=== PATIENT | female | born 1945 | race Caucasian/White ===

== ENCOUNTER 2017-11-24 19:28 | Emergency (ER) | payer MEDICARE, OTHER ==
[~2017-11-24] VITALS: Ht 157.5 cm; Wt 90.9 kg
[~2017-11-24 19:28] MED LIST: AMIT75TA48 PO; ASPI-529 PO; ATOR80TA PO; COU3T PO; COU4T PO; DICY10CA59 PO; DIPH1TAB PO; FAMO-127 PO; FURO-150 PO; HYDR-565 PO; INSU100V9 SQ; LISI-600 PO; LORA2TAB PO; METO25TA6 PO; NITR0.4T48 SL
[2017-11-24 19:35] VITALS: BP 162/96
[2017-11-24] MEDS ORDERED: orphenadrine citrate 60mg/2ml inj. IM ONE (22:15)
[2017-11-24] MEDS ORDERED: CYCL-1 PO (22:18)
== END 2017-11-24 22:34 | disposition home or self-care (01) ==
LOC: ER 19:29
DX: G89.29 Other chronic pain (principal); M54.5 Low back pain; I50.9 Heart failure, unspecified; I11.0 Hypertensive heart disease with heart failure; K21.9 Gastro-esophageal reflux disease without esophagitis; E11.9 Type 2 diabetes mellitus without complications; E78.00 Pure hypercholesterolemia, unspecified; Z90.710 Acquired absence of both cervix and uterus; Z98.890 Other specified postprocedural states; Z60.2 Problems related to living alone; Z88.2 Allergy status to sulfonamides; Z79.82 Long term (current) use of aspirin; Z79.01 Long term (current) use of anticoagulants; Z79.899 Other long term (current) drug therapy; Z79.4 Long term (current) use of insulin
CPT/HCPCS: 96372; 99283; J2360

== ENCOUNTER 2018-02-10 11:47 | Emergency (ER) | payer MEDICARE, OTHER ==
[~2018-02-10] VITALS: Ht 157.5 cm; Wt 95.5 kg
[~2018-02-10 11:47] MED LIST changes: +CYCL-1 PO
[2018-02-10 13:46] VITALS: BP 135/73
== END 2018-02-10 13:55 | disposition home or self-care (01) ==
LOC: ER 11:48
DX: G89.29 Other chronic pain (principal); M54.5 Low back pain; I11.0 Hypertensive heart disease with heart failure; I50.9 Heart failure, unspecified; E78.00 Pure hypercholesterolemia, unspecified; K21.9 Gastro-esophageal reflux disease without esophagitis; M19.90 Unspecified osteoarthritis, unspecified site; Z86.711 Personal history of pulmonary embolism; Z86.718 Personal history of other venous thrombosis and embolism; Z90.710 Acquired absence of both cervix and uterus; Z98.890 Other specified postprocedural states; Z60.2 Problems related to living alone; Z88.2 Allergy status to sulfonamides; Z88.8 Allergy status to other drugs, medicaments and biological substances; Z79.82 Long term (current) use of aspirin; Z79.4 Long term (current) use of insulin; Z79.01 Long term (current) use of anticoagulants; Z79.899 Other long term (current) drug therapy
CPT/HCPCS: 99281

== ENCOUNTER 2018-03-06 16:14 | Emergency (ER) | payer MEDICARE, OTHER ==
[~2018-03-06] VITALS: Ht 160 cm; Wt 100.0 kg
[2018-03-06 16:49] LABS: BASOPHILS # (AUTO) 0.1 X10'3 (0-0.2); BASOPHILS % (AUTO) 1.3 % (0-1); EOSINOPHILS # (AUTO) 0.2 X10'3 (0-0.9); EOSINOPHILS % (AUTO) 2.3 % (0-6); HEMATOCRIT 36.6 % (35.0-45.0); HEMOGLOBIN 12.6 g/dl (12.0-16.0); LYMPHOCYTES # (AUTO) 1.8 X10'3 (1.1-4.8); LYMPHOCYTES % (AUTO) 23.3 % (21-51); MEAN CORPUSCULAR HEMOGLOBIN 29.7 PG (27.0-31.0); MEAN CORPUSCULAR HGB CONC 34.4 % (33.0-36.5); MEAN CORPUSCULAR VOLUME 86.5 FL (78-98); MEAN PLATELET VOLUME 7.2 FL (7.4-10.4); MONOCYTES # (AUTO) 0.4 X10'3 (0-0.9); MONOCYTES % (AUTO) 5.5 % (2-12); NEUTROPHILS # (AUTO) 5.1 X10'3 (1.8-7.7); NEUTROPHILS % (AUTO) 67.6 % (42-75); PLATELET COUNT 305 X10'3 (140-440); RED BLOOD COUNT 4.23 X10'6 (4.20-5.60); RED CELL DISTRIBUTION WIDTH 15.7 % (11.5-14.5); WHITE BLOOD COUNT 7.6 X10'3 (4.5-11.0)
[2018-03-06 17:01] LABS: INR 2.1 INR; PARTIAL THROMBOPLASTIN TIME 30 SECONDS (22-32); PROTHROMBIN TIME 20.8 SECONDS (9.0-12.0)
[2018-03-06 17:06] LABS: ALANINE AMINOTRANSFERASE 21 U/L (12-78); ALBUMIN 3.6 G/DL (3.4-5.0); ALBUMIN/GLOBULIN RATIO 1.2 (1.1-1.5); ALKALINE PHOSPHATASE 125 IU/L (46-116); ANION GAP 7 (8-16); ASPARTATE AMINO TRANSFERASE 18 U/L (10-37); BILIRUBIN,TOTAL 0.2 MG/DL (0.1-1.0); BLOOD UREA NITROGEN 27 MG/DL (7-18); BUN/CREATININE RATIO 20.3 (6.6-38.0); CALCIUM 9.4 MG/DL (8.5-10.1); CHLORIDE 104 MMOL/L (99-107); CREATININE 1.33 MG/DL (0.40-0.90); GLUCOSE 107 MG/DL (70-104); SODIUM 140 MMOL/L (135-145); TOTAL CARBON DIOXIDE 28.8 MMOL/L (24-32); TOTAL PROTEIN 6.7 G/DL (6.4-8.2); eGFR 39 ML/MIN
[2018-03-06 19:02] LABS: D-DIMER 0.39 MG/L FEU (0-0.50)
[2018-03-06] MEDS ORDERED: ondansetron 4mg rapidly disintigrating tab PO ONE (20:00)
[2018-03-06] MEDS ORDERED: HYDROcodone/acetaminophen 5mg/325mg tablet PO ONE (20:00)
[2018-03-06 20:11] VITALS: BP 169/81
== END 2018-03-06 21:00 | disposition home or self-care (01) ==
LOC: ER 16:15
DX: R07.89 Other chest pain (principal); R00.2 Palpitations; I11.0 Hypertensive heart disease with heart failure; I50.9 Heart failure, unspecified; K21.9 Gastro-esophageal reflux disease without esophagitis; E11.9 Type 2 diabetes mellitus without complications; M19.90 Unspecified osteoarthritis, unspecified site; G89.29 Other chronic pain; Z86.718 Personal history of other venous thrombosis and embolism; Z86.711 Personal history of pulmonary embolism; Z90.710 Acquired absence of both cervix and uterus; Z98.890 Other specified postprocedural states; Z88.2 Allergy status to sulfonamides; Z79.01 Long term (current) use of anticoagulants; Z79.4 Long term (current) use of insulin; Z79.899 Other long term (current) drug therapy
CPT/HCPCS: 36415; 71045; 80053; 84484; 85025; 85379; 85610; 85730; 93005; 99285

== ENCOUNTER 2018-04-01 10:03 | Outpatient (CLI) | payer MEDICARE, OTHER ==
[~2018-04-01 10:03] MED LIST changes: +HYDR-4353 PO; -HYDR-565 PO
== END 2018-04-01 23:59 | disposition home or self-care (01) ==
LOC: 64 CT 10:03
PROVIDERS: ATTEND Family Medicine
DX: S00.83XA Contusion of other part of head, initial encounter (principal); R56.9 Unspecified convulsions; I11.0 Hypertensive heart disease with heart failure; E11.9 Type 2 diabetes mellitus without complications; I50.9 Heart failure, unspecified; Z96.653 Presence of artificial knee joint, bilateral; Z87.891 Personal history of nicotine dependence; X58.XXXA Exposure to other specified factors, initial encounter; Y93.89 Activity, other specified; Y92.89 Other specified places as the place of occurrence of the external cause; Y99.8 Other external cause status
CPT/HCPCS: 70450

== ENCOUNTER 2018-04-23 10:40 | Emergency (ER) | payer MEDICARE, OTHER ==
[~2018-04-23] VITALS: Ht 157.5 cm; Wt 88.0 kg
[2018-04-23 11:43] LABS: BASOPHILS # (AUTO) 0.1 X10'3 (0-0.2); BASOPHILS % (AUTO) 0.7 % (0-1); EOSINOPHILS # (AUTO) 0.2 X10'3 (0-0.9); HEMATOCRIT 40.9 % (35.0-45.0); HEMOGLOBIN 13.3 g/dl (12.0-16.0); LYMPHOCYTES # (AUTO) 1.8 X10'3 (1.1-4.8); LYMPHOCYTES % (AUTO) 18.4 % (21-51); MEAN CORPUSCULAR HEMOGLOBIN 29.3 PG (27.0-31.0); MEAN CORPUSCULAR HGB CONC 32.6 % (33.0-36.5); MEAN CORPUSCULAR VOLUME 89.9 FL (78-98); MEAN PLATELET VOLUME 7.7 FL (7.4-10.4); MONOCYTES # (AUTO) 0.5 X10'3 (0-0.9); NEUTROPHILS # (AUTO) 7.1 X10'3 (1.8-7.7); NEUTROPHILS % (AUTO) 73.9 % (42-75); PLATELET COUNT 315 X10'3 (140-440); RED BLOOD COUNT 4.55 X10'6 (4.20-5.60); RED CELL DISTRIBUTION WIDTH 15.4 % (11.5-14.5); WHITE BLOOD COUNT 9.5 X10'3 (4.5-11.0)
[2018-04-23 11:55] LABS: INR 2.3 INR; PARTIAL THROMBOPLASTIN TIME 31 SECONDS (22-32); PROTHROMBIN TIME 22.4 SECONDS (9.0-12.0)
[2018-04-23 12:06] LABS: ALANINE AMINOTRANSFERASE 23 U/L (12-78); ALBUMIN 3.7 G/DL (3.4-5.0); ALBUMIN/GLOBULIN RATIO 1.1 (1.1-1.5); ALKALINE PHOSPHATASE 127 IU/L (46-116); ANION GAP 8 (8-16); ASPARTATE AMINO TRANSFERASE 17 U/L (10-37); BILIRUBIN,TOTAL 0.5 MG/DL (0.1-1.0); BLOOD UREA NITROGEN 27 MG/DL (7-18); BUN/CREATININE RATIO 25.5 (6.6-38.0); CALCIUM 9.5 MG/DL (8.5-10.1); CHLORIDE 102 MMOL/L (99-107); CREATININE 1.06 MG/DL (0.40-0.90); GLUCOSE 123 MG/DL (70-104); POTASSIUM 3.6 MMOL/L (3.5-5.1); SODIUM 140 MMOL/L (135-145); TOTAL CARBON DIOXIDE 29.7 MMOL/L (24-32); TOTAL PROTEIN 7.2 G/DL (6.4-8.2); eGFR 51 ML/MIN
[2018-04-23 12:43] VITALS: BP 158/83
== END 2018-04-23 12:44 | disposition home or self-care (01) ==
LOC: ER 10:41
DX: R07.89 Other chest pain (principal); R60.0 Localized edema; I11.0 Hypertensive heart disease with heart failure; I50.9 Heart failure, unspecified; E78.00 Pure hypercholesterolemia, unspecified; K21.9 Gastro-esophageal reflux disease without esophagitis; E11.9 Type 2 diabetes mellitus without complications; M19.90 Unspecified osteoarthritis, unspecified site; G89.29 Other chronic pain; Z86.718 Personal history of other venous thrombosis and embolism; Z86.711 Personal history of pulmonary embolism; Z98.890 Other specified postprocedural states; Z90.710 Acquired absence of both cervix and uterus; Z88.2 Allergy status to sulfonamides; Z79.82 Long term (current) use of aspirin; Z79.01 Long term (current) use of anticoagulants; Z79.899 Other long term (current) drug therapy
CPT/HCPCS: 36415; 71045; 80053; 84484; 85025; 85610; 85730; 93005; 99285

== ENCOUNTER 2018-06-22 12:56 | Emergency (ER) | payer MEDICARE, OTHER ==
[~2018-06-22] VITALS: Ht 157.5 cm; Wt 99.0 kg
[2018-06-22 14:31] LABS: PARTIAL THROMBOPLASTIN TIME 43 SECONDS (22-32); PROTHROMBIN TIME 73.7 SECONDS (9.0-12.0)
[2018-06-22 14:33] LABS: INR 8.1 INR
--- NOTE | 2018-06-22 14:34 | NUR ---
critical value of INR 8.1, Dr Finch aware
[2018-06-22] MEDS ORDERED: phytonadione inj. 10 MG in normal saline 100ml IV soln 99 ML IV ONE (14:40)
[2018-06-22 15:04] LABS: BASOPHILS % (AUTO) 0.4 % (0-1); EOSINOPHILS # (AUTO) 0.2 X10'3 (0-0.9); EOSINOPHILS % (AUTO) 2.3 % (0-6); HEMATOCRIT 37.8 % (35.0-45.0); HEMOGLOBIN 12.3 g/dl (12.0-16.0); LYMPHOCYTES # (AUTO) 1.2 X10'3 (1.1-4.8); LYMPHOCYTES % (AUTO) 14.8 % (21-51); MEAN CORPUSCULAR HEMOGLOBIN 29.7 PG (27.0-31.0); MEAN CORPUSCULAR HGB CONC 32.6 % (33.0-36.5); MEAN PLATELET VOLUME 7.8 FL (7.4-10.4); MONOCYTES # (AUTO) 0.5 X10'3 (0-0.9); MONOCYTES % (AUTO) 6.4 % (2-12); NEUTROPHILS # (AUTO) 5.9 X10'3 (1.8-7.7); NEUTROPHILS % (AUTO) 76.1 % (42-75); PLATELET COUNT 298 X10'3 (140-440); RED BLOOD COUNT 4.15 X10'6 (4.20-5.60); RED CELL DISTRIBUTION WIDTH 13.8 % (11.5-14.5); WHITE BLOOD COUNT 7.8 X10'3 (4.5-11.0)
[2018-06-22 15:08] LABS: ALANINE AMINOTRANSFERASE 37 U/L (12-78); ALBUMIN 3.6 G/DL (3.4-5.0); ALKALINE PHOSPHATASE 152 IU/L (46-116); ANION GAP 11 (8-16); ASPARTATE AMINO TRANSFERASE 32 U/L (10-37); BILIRUBIN,TOTAL 0.2 MG/DL (0.1-1.0); BLOOD UREA NITROGEN 43 MG/DL (7-18); BUN/CREATININE RATIO 30.1 (6.6-38.0); CALCIUM 8.7 MG/DL (8.5-10.1); CHLORIDE 103 MMOL/L (99-107); CREATININE 1.43 MG/DL (0.40-0.90); GLUCOSE 160 MG/DL (70-104); POTASSIUM 4.3 MMOL/L (3.5-5.1); SODIUM 139 MMOL/L (135-145); TOTAL CARBON DIOXIDE 25.3 MMOL/L (24-32); TOTAL PROTEIN 7.2 G/DL (6.4-8.2); eGFR 36 ML/MIN
[2018-06-22 15:35] VITALS: BP 161/71
== END 2018-06-22 15:38 | disposition home or self-care (01) ==
LOC: ER 12:56
DX: D68.8 Other specified coagulation defects (principal); J06.9 Acute upper respiratory infection, unspecified; E78.00 Pure hypercholesterolemia, unspecified; K21.9 Gastro-esophageal reflux disease without esophagitis; M19.90 Unspecified osteoarthritis, unspecified site; G89.29 Other chronic pain; I11.0 Hypertensive heart disease with heart failure; I50.9 Heart failure, unspecified; Z90.710 Acquired absence of both cervix and uterus; Z98.890 Other specified postprocedural states; Z86.718 Personal history of other venous thrombosis and embolism; Z86.711 Personal history of pulmonary embolism; Z88.2 Allergy status to sulfonamides; Z79.01 Long term (current) use of anticoagulants; Z88.8 Allergy status to other drugs, medicaments and biological substances; Z79.82 Long term (current) use of aspirin; Z79.899 Other long term (current) drug therapy; Z79.4 Long term (current) use of insulin
CPT/HCPCS: 36415; 71045; 80053; 83735; 84484; 85025; 85610; 85730; 93005; 99284; J3430; J7030

== ENCOUNTER 2018-06-25 09:40 | Inpatient (IN) | payer MEDICARE, OTHER ==
[~2018-06-25] VITALS: Ht 157.5 cm; Wt 95.5 kg
[2018-06-25 10:29] LABS: BASOPHILS # (AUTO) 0.1 X10'3 (0-0.2); EOSINOPHILS # (AUTO) 0.2 X10'3 (0-0.9); EOSINOPHILS % (AUTO) 3.3 % (0-6); HEMATOCRIT 35.2 % (35.0-45.0); HEMOGLOBIN 11.8 g/dl (12.0-16.0); LYMPHOCYTES # (AUTO) 1.4 X10'3 (1.1-4.8); LYMPHOCYTES % (AUTO) 22.1 % (21-51); MEAN CORPUSCULAR HEMOGLOBIN 30.1 PG (27.0-31.0); MEAN CORPUSCULAR HGB CONC 33.5 % (33.0-36.5); MEAN PLATELET VOLUME 7.7 FL (7.4-10.4); MONOCYTES # (AUTO) 0.4 X10'3 (0-0.9); MONOCYTES % (AUTO) 5.9 % (2-12); NEUTROPHILS # (AUTO) 4.2 X10'3 (1.8-7.7); NEUTROPHILS % (AUTO) 67.7 % (42-75); PLATELET COUNT 290 X10'3 (140-440); RED BLOOD COUNT 3.91 X10'6 (4.20-5.60); RED CELL DISTRIBUTION WIDTH 13.6 % (11.5-14.5); WHITE BLOOD COUNT 6.3 X10'3 (4.5-11.0)
[2018-06-25 10:40] LABS: ALANINE AMINOTRANSFERASE 39 U/L (12-78); ALBUMIN 3.5 G/DL (3.4-5.0); ALKALINE PHOSPHATASE 155 IU/L (46-116); ANION GAP 13 (8-16); ASPARTATE AMINO TRANSFERASE 31 U/L (10-37); BILIRUBIN,TOTAL 0.3 MG/DL (0.1-1.0); BLOOD UREA NITROGEN 27 MG/DL (7-18); BUN/CREATININE RATIO 25.7 (6.6-38.0); CHLORIDE 102 MMOL/L (99-107); CREATININE 1.05 MG/DL (0.40-0.90); GLUCOSE 188 MG/DL (70-104); POTASSIUM 4.1 MMOL/L (3.5-5.1); SODIUM 138 MMOL/L (135-145); TOTAL CARBON DIOXIDE 23.2 MMOL/L (24-32); TOTAL PROTEIN 6.9 G/DL (6.4-8.2); eGFR 52 ML/MIN
[2018-06-25 10:43] LABS: INR 2.2 INR; PARTIAL THROMBOPLASTIN TIME 30 SECONDS (22-32); PROTHROMBIN TIME 21.5 SECONDS (9.0-12.0)
[2018-06-25] MEDS ORDERED: normal saline 1000ML IV soln IVB ONE (11:20)
[2018-06-25] MEDS ORDERED: INSU100I29 (12:39)
[2018-06-25] MEDS ORDERED: DILT240C47 PO (12:39)
[2018-06-25] MEDS ORDERED: BACL10TA2 PO (12:39)
[2018-06-25] MEDS ORDERED: magnesium Cl slow-release 64mg tablet PO PRN (13:35)
[2018-06-25] MEDS ORDERED: ondansetron/PF 4mg/2ml inj IV PRN (13:35)
[2018-06-25] MEDS ORDERED: magnesium 4gm in 100ml NS 100 ML IV PRN (13:35)
[2018-06-25] MEDS ORDERED: potassium Cl 40MEQ/NS 500ml 500 ML IV PRN ×2 (13:35)
[2018-06-25] MEDS ORDERED: potassium Cl 20 mEq SR tablet PO PRN ×2 (13:35)
--- NOTE | 2018-06-25 15:10 | NUR ---
Pt arrived on unit via gurney with ER nurse Barak. Patient assisted to bed. Orientation to room provided. Call light in place bed in low position.
[2018-06-25 15:40] VITALS: BP 168/69
[2018-06-25] MEDS ORDERED: dextrose 50%-water 50ml dispensing syringe IV PRN ×2 (17:05)
[2018-06-25] MEDS ORDERED: insulin Lispro (HumaLOG) vial - multi-dose SQ SCH (17:05)
[2018-06-25] MEDS ORDERED: dextrose ORAL solution 15 GM/59 ML bottle PO PRN ×2 (17:05)
[2018-06-25] MEDS ORDERED: furosemide 20MG tablet PO PRN (17:05)
[2018-06-25] MEDS ORDERED: diphenoxylate/atropine tablet (Lomotil) PO PRN (17:05)
[2018-06-25] MEDS ORDERED: glucagon, human recombinant 1mg kit SUBCUT PRN (17:05)
[2018-06-25] MEDS ORDERED: MESSAGE TO PHARMACY PO ONE (17:05)
[2018-06-25 18:37] LABS: HEMOGLOBIN A1C 7.4 % (4.5-6.2)
--- NOTE | 2018-06-25 18:40 | NUR ---
Problems reprioritized. Patient report given, questions answered & plan of care reviewed with Vivian CLEMENTS.
--- NOTE | 2018-06-25 18:42 | NUR ---
Patient in room LEXEI 356. I have received report from Cee CLEMENTS and had the opportunity to ask questions and assume patient care. Pt sitting up in bed eating dinner and visiting with her neighbor. Pt has no signs of distress. Will continue to monitor.
[2018-06-25] MEDS: HYDROcodone/acetaminophen 10/325mg tab PO SCH (19:50)
[2018-06-25 20:00] VITALS: BP_SYST 150; BP_SYST 151; BP_SYST 171; BP_DIAS 50; BP_DIAS 53; BP_DIAS 68
[2018-06-25] MEDS ORDERED: LORazepam 1 MG tablet PO SCH (21:00)
[2018-06-25] MEDS ORDERED: insulin glargine (Lantus) pen - multi-dose SQ SCH (21:00)
[2018-06-25] MEDS ORDERED: non-formulary drug (Lorazepam 1 TAB) PO SCH (21:00)
[2018-06-25] MEDS: dicyclomine 10 MG capsule PO SCH (22:05)
[2018-06-25] MEDS: baclofen 10mg tablet PO PRN (22:05)
[2018-06-26] VITALS: BP 148/41
[2018-06-26] MEDS: HYDROcodone/acetaminophen 10/325mg tab PO SCH ×4 (00:16→13:08)
[2018-06-26 06:05] LABS: ALBUMIN 2.9 G/DL (3.4-5.0); ANION GAP 9 (8-16); BLOOD UREA NITROGEN 19 MG/DL (7-18); CALCIUM 8.7 MG/DL (8.5-10.1); CHLORIDE 107 MMOL/L (99-107); CREATININE 0.95 MG/DL (0.40-0.90); GLUCOSE 127 MG/DL (70-104); MAGNESIUM 1.7 MG/DL (1.5-2.4); SODIUM 142 MMOL/L (135-145); TOTAL CARBON DIOXIDE 26.1 MMOL/L (24-32); eGFR 58 ML/MIN
[2018-06-26 06:12] LABS: BASOPHILS % (AUTO) 0.3 % (0-1); EOSINOPHILS # (AUTO) 0.4 X10'3 (0-0.9); EOSINOPHILS % (AUTO) 7.3 % (0-6); HEMATOCRIT 32.6 % (35.0-45.0); HEMOGLOBIN 10.7 g/dl (12.0-16.0); LYMPHOCYTES % (AUTO) 36.4 % (21-51); MEAN CORPUSCULAR HEMOGLOBIN 29.8 PG (27.0-31.0); MEAN CORPUSCULAR HGB CONC 32.7 % (33.0-36.5); MEAN PLATELET VOLUME 7.7 FL (7.4-10.4); MONOCYTES # (AUTO) 0.4 X10'3 (0-0.9); MONOCYTES % (AUTO) 6.9 % (2-12); NEUTROPHILS # (AUTO) 2.6 X10'3 (1.8-7.7); NEUTROPHILS % (AUTO) 49.1 % (42-75); PLATELET COUNT 256 X10'3 (140-440); RED BLOOD COUNT 3.59 X10'6 (4.20-5.60); RED CELL DISTRIBUTION WIDTH 13.4 % (11.5-14.5); WHITE BLOOD COUNT 5.4 X10'3 (4.5-11.0)
--- NOTE | 2018-06-26 06:39 | NUR ---
Patient in room LEXIE 356. I have received report from TYREE Park and had the opportunity to ask questions and assume patient care.
--- NOTE | 2018-06-26 06:41 | NUR ---
Problems reprioritized. Patient report given, questions answered & plan of care reviewed with Nava RN. Pt sitting up in bed talking to her roomate with no signs of distress.
[2018-06-26 06:45] LABS: INR 1.9 INR; PROTHROMBIN TIME 18.7 SECONDS (9.0-12.0)
[2018-06-26 07:25] VITALS: BP 165/63
[2018-06-26] MEDS: dicyclomine 10 MG capsule PO SCH ×2 (07:48→12:46)
[2018-06-26 08:00] VITALS: BP_SYST 167; BP_SYST 170; BP_SYST 174; BP_DIAS 63; BP_DIAS 65; BP_DIAS 72
[2018-06-26] MEDS ORDERED: DILTIAZEM HCL 240 MG PO SCH (08:00)
[2018-06-26] MEDS ORDERED: diltiazem CD 120mg capsule (once-daily) PO SCH (08:00)
[2018-06-26] MEDS ORDERED: K and/or MAG REPLACEMENT MC SCH (08:00)
[2018-06-26] MEDS ORDERED: warfarin 3mg tablet PO SCH (08:00)
[2018-06-26] MEDS: baclofen 10mg tablet PO PRN (09:07)
[2018-06-26 11:00] VITALS: BP 174/65
--- NOTE | 2018-06-26 15:50 | NUR ---
DM consult: Pt with A1c 7.4. Pt seen at bedside given written and verbal DM education with referral to outpatient DM class and RD contact information. Will remain available. Addendum: 06/26/18 at [address] Amended: Links added.
[2018-06-26] MEDS ORDERED: HYDROcodone/acetaminophen 10/325mg tab PO SCH (16:00)
[2018-06-26] MEDS ORDERED: DONE5TAB7 PO (17:13)
[2018-06-26] MEDS ORDERED: LISI-604 PO (17:13)
[2018-06-26] MEDS ORDERED: lisinopril 5mg tablet PO SCH (17:15)
[2018-06-26] MEDS ORDERED: donepezil 5mg tablet PO SCH (17:15)
[2018-06-26 17:19] LABS: CLARITY,URINE CLEAR (Clear); COLOR,URINE YELLOW (Yellow); GLUCOSE, URINE NEGATIVE (Neg); KETONES,URINE 15 mg/dl (Neg); LEUKOCYTE ESTERASE ,URINE NEGATIVE (Neg); NITRITES, URINE NEGATIVE (Neg); OCCULT BLOOD,URINE SMALL (Neg); PH,URINE 5.5 (4.8-8.0); PROTEIN,URINE NEGATIVE (Neg); UROBILINOGEN,URINE 0.2 E.U/dL (0.2-1.0)
[2018-06-26 17:27] LABS: UA COLLECTION TYPE NON-SPECIFIED
[2018-06-26 17:28] LABS: BACTERIA,URINE NONE SEEN /HPF (Neg); RBC,URINE NONE SEEN /HPF (0-2); SQUAMOUS EPITHELIAL CELL,UR FEW /LPF (FEW); WBC,URINE NONE SEEN /HPF (0-4)
[2018-06-26 17:29] LABS: MUCUS STRANDS FEW /LPF (Neg)
--- NOTE | 2018-06-26 18:15 | NUR ---
Problems reprioritized. Patient report given, questions answered & plan of care reviewed with Violeta Vargas RN.
--- NOTE | 2018-06-26 19:38 | NUR ---
Pt discharged to personal vehicle. A&O, up ad fili, fully dressed self for discharge. Daytime RN was told MD had called daughter for pickup expecting the MD had relayed info to pt daughter. Pt called daughter to find out whereabouts and daughter stated she was never called. Patient decided to drive self home and is fully capable of doing so. IV had been removed by daytime RN. Patient had all belongings. Stated her primary MD was on vacation for 4 weeks, but would follow up with PA. Discharged with HH via interim.
[2018-06-26] MEDS ORDERED: lactobacillus rhamnosus 10,000 MMU CELLS/CAPSULE PO SCH (20:00)
== END 2018-06-26 19:25 | disposition home health service (06) | DRG 57 ==
LOC: ER 09:40 → ED HOLD 13:33 → SUR 3N 15:33
PROVIDERS: ADMIT Internal Medicine; ATTEND Internal Medicine
DX: G30.9 Alzheimer's disease, unspecified (principal); D68.69 Other thrombophilia; D68.9 Coagulation defect, unspecified; E78.00 Pure hypercholesterolemia, unspecified; E78.5 Hyperlipidemia, unspecified; F02.80 Dementia in other diseases classified elsewhere, unspecified severity, without behavioral disturbance, psychotic disturbance, mood disturbance, and anxiety; G20 Parkinson's disease; F32.9 Major depressive disorder, single episode, unspecified; F41.9 Anxiety disorder, unspecified; M19.90 Unspecified osteoarthritis, unspecified site; N28.9 Disorder of kidney and ureter, unspecified; E10.9 Type 1 diabetes mellitus without complications; M54.9 Dorsalgia, unspecified; G89.4 Chronic pain syndrome; I11.0 Hypertensive heart disease with heart failure; I50.9 Heart failure, unspecified; K21.9 Gastro-esophageal reflux disease without esophagitis; Z60.2 Problems related to living alone; Z90.710 Acquired absence of both cervix and uterus; Z95.0 Presence of cardiac pacemaker; Z88.2 Allergy status to sulfonamides; Z88.8 Allergy status to other drugs, medicaments and biological substances; Z79.899 Other long term (current) drug therapy; Z79.4 Long term (current) use of insulin; Z79.01 Long term (current) use of anticoagulants; Z86.711 Personal history of pulmonary embolism; Z86.718 Personal history of other venous thrombosis and embolism; Z82.3 Family history of stroke; Z83.3 Family history of diabetes mellitus
CPT/HCPCS: 36415; 70450; 70551; 71045; 80048; 80053; 81001; 82948; 83036; 83735; 84484; 85025; 85610; 85730; 87070; 93005; 96360; 97116; 97161; 99285; G0378; J1815

== ENCOUNTER 2018-10-01 16:44 | Inpatient (IN) | payer MEDICARE, OTHER ==
[~2018-10-01] VITALS: Ht 157.5 cm; Wt 98.6 kg
[~2018-10-01 16:44] MED LIST changes: -AMIT75TA48 PO; -ASPI-529 PO; -ATOR80TA PO; -CYCL-1 PO; +DILT240C47 PO; +DONE5TAB7 PO; -FAMO-127 PO; -FURO-150 PO; +INSU100I29; -INSU100V9 SQ; -LISI-600 PO; +LISI-604 PO; -METO25TA6 PO; -NITR0.4T48 SL
[2018-10-01 17:58] LABS: BASOPHILS % (AUTO) 0.6 % (0-1); EOSINOPHILS # (AUTO) 0.2 X10'3 (0-0.9); EOSINOPHILS % (AUTO) 3.4 % (0-6); HEMATOCRIT 36.5 % (35.0-45.0); HEMOGLOBIN 11.8 g/dl (12.0-16.0); LYMPHOCYTES # (AUTO) 1.6 X10'3 (1.1-4.8); LYMPHOCYTES % (AUTO) 23.2 % (21-51); MEAN CORPUSCULAR HEMOGLOBIN 28.5 PG (27.0-31.0); MEAN CORPUSCULAR HGB CONC 32.4 g/dL (33.0-36.5); MEAN CORPUSCULAR VOLUME 87.9 FL (78-98); MEAN PLATELET VOLUME 7.6 FL (7.4-10.4); MONOCYTES # (AUTO) 0.5 X10'3 (0-0.9); MONOCYTES % (AUTO) 7.1 % (2-12); NEUTROPHILS # (AUTO) 4.6 X10'3 (1.8-7.7); NEUTROPHILS % (AUTO) 65.7 % (42-75); PLATELET COUNT 244 X10'3 (140-440); RED BLOOD COUNT 4.15 X10'6 (4.20-5.60); RED CELL DISTRIBUTION WIDTH 14.8 % (11.5-14.5); WHITE BLOOD COUNT 7.1 X10'3 (4.5-11.0)
[2018-10-01 18:10] LABS: ALANINE AMINOTRANSFERASE 23 U/L (12-78); ALBUMIN 3.2 G/DL (3.4-5.0); ALKALINE PHOSPHATASE 126 IU/L (46-116); ANION GAP 7 (8-16); ASPARTATE AMINO TRANSFERASE 17 U/L (10-37); BILIRUBIN,TOTAL 0.1 MG/DL (0.1-1.0); BLOOD UREA NITROGEN 37 MG/DL (7-18); BUN/CREATININE RATIO 29.4 (6.6-38.0); CALCIUM 9.1 MG/DL (8.5-10.1); CHLORIDE 106 MMOL/L (99-107); CREATININE 1.26 MG/DL (0.40-0.90); GLUCOSE 237 MG/DL (70-104); POTASSIUM 4.7 MMOL/L (3.5-5.1); SODIUM 139 MMOL/L (135-145); TOTAL CARBON DIOXIDE 25.9 MMOL/L (24-32); TOTAL PROTEIN 6.3 G/DL (6.4-8.2); eGFR 42 ML/MIN
[2018-10-01 18:26] LABS: PARTIAL THROMBOPLASTIN TIME 44 SECONDS (22-32)
[2018-10-01 18:28] LABS: INR 5.5 INR
[2018-10-01] MEDS ORDERED: FURO-150 PO (20:01)
[2018-10-01] MEDS ORDERED: LISI10TA4 PO (20:01)
[2018-10-01] MEDS ORDERED: DONE5TAB7 PO (20:01)
[2018-10-01] MEDS ORDERED: ACET-2319 PO (20:01)
[2018-10-01] MEDS ORDERED: MAGN400C PO (20:01)
[2018-10-01] MEDS ORDERED: AMIT-106 PO (20:01)
[2018-10-01] MEDS ORDERED: INSU100I29 SQ (20:01)
[2018-10-01] MEDS ORDERED: [UNRECOGNIZED DRUG - OTHER] PO (20:01)
[2018-10-01] MEDS ORDERED: FAMO20TA8 PO (20:01)
[2018-10-01] MEDS ORDERED: normal saline 1000ml 1,000 ML IV SCH (20:08)
[2018-10-01] MEDS ORDERED: potassium Cl 40MEQ/NS 500ml 500 ML IV PRN ×2 (20:10)
[2018-10-01] MEDS ORDERED: aminophylline 250mg/10ml inj. IV PRN (20:10)
[2018-10-01] MEDS ORDERED: acetaminophen 325mg tablet PO PRN (20:10)
[2018-10-01] MEDS ORDERED: mag hydrox/Alum hydrox/simeth 30ml oral suspension PO PRN (20:10)
[2018-10-01] MEDS ORDERED: magnesium 4gm in 100ml NS 100 ML IV PRN (20:10)
[2018-10-01] MEDS ORDERED: nitroGLYCERIN 0.4mg SUBLingual tab SL PRN (20:10)
[2018-10-01] MEDS ORDERED: metoprolol tartrate 1mg/ml inj IV PRN (20:10)
[2018-10-01] MEDS ORDERED: glucagon, human recombinant 1mg kit SUBCUT PRN (20:10)
[2018-10-01] MEDS ORDERED: dextrose ORAL solution 15 GM/59 ML bottle PO PRN ×2 (20:10)
[2018-10-01] MEDS ORDERED: docusate sod 100mg capsule PO PRN (20:10)
[2018-10-01] MEDS ORDERED: potassium Cl 20 mEq SR tablet PO PRN ×2 (20:10)
[2018-10-01] MEDS ORDERED: regadenoson 0.4mg/5ml syringe IV ONE (20:10)
[2018-10-01] MEDS ORDERED: MESSAGE TO PHARMACY PO ONE (20:10)
[2018-10-01] MEDS ORDERED: insulin Lispro (HumaLOG) vial - multi-dose SQ SCH (20:10)
[2018-10-01] MEDS ORDERED: magnesium 2GM in 50ml NS 50 ML IV PRN (20:10)
[2018-10-01] MEDS ORDERED: morphine 4 MG/ML inj SYRINge IV PRN ×2 (20:10)
[2018-10-01] MEDS ORDERED: dextrose 50%-water 50ml dispensing syringe IV PRN ×2 (20:10)
[2018-10-01 20:46] LABS: HEMOGLOBIN A1C 7.3 % (4.5-6.2)
[2018-10-01] MEDS: insulin glargine (Lantus) pen - multi-dose SQ SCH (21:00)
[2018-10-01] MEDS ORDERED: HYDROcodone/acetaminophen 5mg/325mg tablet PO PRN (21:50)
--- NOTE | 2018-10-01 22:16 | NUR ---
pt c\o chronic back pain. pt given PO [place]. will re-eval shortly to see if effective
[2018-10-01] MEDS: dicyclomine 10 MG capsule PO SCH (22:21)
[2018-10-01] MEDS: donepezil 5mg tablet PO SCH (22:33)
[2018-10-01] MEDS ORDERED: AZIT-63 PO (23:22)
[2018-10-02] VITALS (8 sets, daily range): BP systolic 121–160; BP diastolic 51–63
--- NOTE | 2018-10-02 00:41 | NUR ---
Called Dr. oMon re: additional pain meds for patient's back pain. PAGER ID: [phone] MESSAGE: Re: Mari Major, new admit for chest pain in PCU 3012-C. Still c/o back pain. Has received 5mg of [place], and 2mg of Morphine, both approx. 2 hrs ago. She takes 20mg of Oxy QHS at home, and 10mg Q4 during the day. Pls call Elsa at [phone] returned call while typing current note, gave new orders.
[2018-10-02] MEDS ORDERED: HYDROcodone/acetaminophen 10/325mg tab PO ONE (00:50)
[2018-10-02] MEDS: HYDROcodone/acetaminophen 10/325mg tab PO PRN ×3 (01:44→23:52)
[2018-10-02 05:47] LABS: BASOPHILS % (AUTO) 0.4 % (0-1); EOSINOPHILS # (AUTO) 0.3 X10'3 (0-0.9); EOSINOPHILS % (AUTO) 4.9 % (0-6); HEMATOCRIT 33.9 % (35.0-45.0); HEMOGLOBIN 11.1 g/dl (12.0-16.0); LYMPHOCYTES # (AUTO) 1.9 X10'3 (1.1-4.8); LYMPHOCYTES % (AUTO) 34.3 % (21-51); MEAN CORPUSCULAR HEMOGLOBIN 29.1 PG (27.0-31.0); MEAN CORPUSCULAR HGB CONC 32.8 g/dL (33.0-36.5); MEAN CORPUSCULAR VOLUME 88.8 FL (78-98); MEAN PLATELET VOLUME 7.8 FL (7.4-10.4); MONOCYTES # (AUTO) 0.5 X10'3 (0-0.9); MONOCYTES % (AUTO) 8.7 % (2-12); NEUTROPHILS # (AUTO) 2.9 X10'3 (1.8-7.7); NEUTROPHILS % (AUTO) 51.7 % (42-75); PLATELET COUNT 224 X10'3 (140-440); RED BLOOD COUNT 3.82 X10'6 (4.20-5.60); WHITE BLOOD COUNT 5.6 X10'3 (4.5-11.0)
--- NOTE | 2018-10-02 06:00 | NUR ---
Patient in room PCU 3012. I have received report from TYREE Hunter and had the opportunity to ask questions and assume patient care.
[2018-10-02 06:01] LABS: ALANINE AMINOTRANSFERASE 22 U/L (12-78); ALBUMIN 2.9 G/DL (3.4-5.0); ALBUMIN/GLOBULIN RATIO 1.1 (1.1-1.5); ALKALINE PHOSPHATASE 109 IU/L (46-116); ANION GAP 5 (8-16); ASPARTATE AMINO TRANSFERASE 15 U/L (10-37); BILIRUBIN,TOTAL 0.3 MG/DL (0.1-1.0); BLOOD UREA NITROGEN 26 MG/DL (7-18); BUN/CREATININE RATIO 28.6 (6.6-38.0); CALCIUM 8.8 MG/DL (8.5-10.1); CHLORIDE 108 MMOL/L (99-107); CHOL/HDL RATIO 3.7 (0.00-4.99); CHOLESTEROL 194 MG/DL (0-200); CREATININE 0.91 MG/DL (0.40-0.90); GLUCOSE 117 MG/DL (70-104); HDL CHOLESTEROL 53 MG/DL (35-60); LDL CHOLESTEROL 127 MG/DL (50-100); MAGNESIUM 1.7 MG/DL (1.5-2.4); SODIUM 141 MMOL/L (135-145); TOTAL CARBON DIOXIDE 28.3 MMOL/L (24-32); TOTAL PROTEIN 5.6 G/DL (6.4-8.2); TRIGLYCERIDES 150 MG/DL (20-135); eGFR 61 ML/MIN
[2018-10-02 07:26] LABS: PROTHROMBIN TIME 40.2 SECONDS (9.0-12.0)
[2018-10-02 07:28] LABS: INR 4.3 INR
--- NOTE | 2018-10-02 07:41 | NUR ---
PAGER ID: [phone] MESSAGE: [id number] Jacob Major Critical INR 4.3, down from 5.5. TYREE Mendes [id number]
[2018-10-02] MEDS: K and/or MAG REPLACEMENT MC SCH (08:00)
[2018-10-02] MEDS: dicyclomine 10 MG capsule PO SCH ×3 (08:53→20:48)
[2018-10-02] MEDS: famotidine 20mg tablet PO SCH (08:53)
[2018-10-02] MEDS: diltiazem CD 120mg capsule (once-daily) PO SCH (08:54)
[2018-10-02] MEDS: lisinopril 10 MG tablet PO SCH (08:54)
[2018-10-02] MEDS ORDERED: nitroGLYCERIN 0.4mg/hour patch TD ONE (09:05)
--- NOTE | 2018-10-02 09:40 | NUR ---
Pt c/o chest pain 5/10 central chest pressure radiating to left arm. Notified MD of change in patient's CP, going to order a STAT EKG, per MD EKG is not necessary. MD okay with administered IV morphine for chest pain. No other orders received at this time.
[2018-10-02] MEDS ORDERED: metoprolol tartrate 1mg/ml inj IV PRN (10:00)
[2018-10-02] MEDS ORDERED: nitroGLYCERIN 0.4mg SUBLingual tab SL PRN (10:00)
[2018-10-02] MEDS ORDERED: regadenoson 0.4mg/5ml syringe IV ONE (10:00)
[2018-10-02] MEDS ORDERED: aminophylline 250mg/10ml inj. IV PRN (10:00)
[2018-10-02] MEDS: aspirin 81mg tablet.DR PO SCH (10:25)
[2018-10-02] MEDS: atorvastatin 20mg tablet PO SCH (11:33)
--- NOTE | 2018-10-02 12:08 | NUR ---
PAGER ID: [phone] MESSAGE: [id number] Jacob Major Please call Sheila in [facility] re. Radha. ext. [phone]. Thank you.
--- NOTE | 2018-10-02 13:25 | NUR ---
Pt c/o headache 8/ and dizziness. Wants nitro patch removed. BP 161/65, HR 78. Pt removed patch. Addendum: 10/02/18 at 1747 by Nanette Anton RN @ [phone] Pt states headache is 5/10, BP is 125/50, HR 69. Will notify
--- NOTE | 2018-10-02 13:39 | NUR ---
DM/malnutrition consult, A1c 7.3; patient seen at bedside and written DM education handout with verbal review and referral to Friday outpatient DM education class. Patient reports that last year she lost and gained back 100 lbs. She states that recently there is no weight loss and reports a good appetite. Does not want milk to drink, d/w dietary, will add yogurt to lunch per pt request. Addendum: 10/02/18 at [address] Amended: Links added.
--- NOTE | 2018-10-02 16:25 | NUR ---
PAGER ID: [phone] MESSAGE: [id number] Jacob Major Pt removed nitro patch with c/o headache. pain resolved with removal. No chest pain. TYREE Mendes [id number]
--- NOTE | 2018-10-02 18:10 | NUR ---
Patient in room PCU 3012. I have received report from Cinthya CLEMENTS and had the opportunity to ask questions and assume patient care.
[2018-10-02] MEDS: morphine 2 MG/ML inj. syringe IV PRN (19:47)
[2018-10-02] MEDS: donepezil 5mg tablet PO SCH (20:48)
[2018-10-02] MEDS: magnesium oxide 400mg tablet PO SCH (20:53)
[2018-10-02] MEDS: insulin glargine (Lantus) pen - multi-dose SQ SCH (21:00)
[2018-10-03] VITALS (14 sets, daily range): BP systolic 105–152; BP diastolic 48–82
[2018-10-03 05:24] LABS: PROTHROMBIN TIME 21.3 SECONDS (9.0-12.0)
[2018-10-03 05:25] LABS: INR 2.2 INR
[2018-10-03 05:34] LABS: BASOPHILS % (AUTO) 0.5 % (0-1); EOSINOPHILS # (AUTO) 0.3 X10'3 (0-0.9); HEMATOCRIT 35.9 % (35.0-45.0); HEMOGLOBIN 11.7 g/dl (12.0-16.0); LYMPHOCYTES # (AUTO) 1.8 X10'3 (1.1-4.8); LYMPHOCYTES % (AUTO) 35.1 % (21-51); MEAN CORPUSCULAR HEMOGLOBIN 28.8 PG (27.0-31.0); MEAN CORPUSCULAR HGB CONC 32.7 g/dL (33.0-36.5); MEAN PLATELET VOLUME 7.7 FL (7.4-10.4); MONOCYTES # (AUTO) 0.5 X10'3 (0-0.9); MONOCYTES % (AUTO) 9.3 % (2-12); NEUTROPHILS # (AUTO) 2.6 X10'3 (1.8-7.7); NEUTROPHILS % (AUTO) 50.1 % (42-75); PLATELET COUNT 234 X10'3 (140-440); RED BLOOD COUNT 4.08 X10'6 (4.20-5.60); RED CELL DISTRIBUTION WIDTH 14.8 % (11.5-14.5); WHITE BLOOD COUNT 5.2 X10'3 (4.5-11.0)
[2018-10-03 05:37] LABS: ALANINE AMINOTRANSFERASE 23 U/L (12-78); ALBUMIN/GLOBULIN RATIO 1.1 (1.1-1.5); ALKALINE PHOSPHATASE 116 IU/L (46-116); ANION GAP 6 (8-16); ASPARTATE AMINO TRANSFERASE 17 U/L (10-37); BILIRUBIN,TOTAL 0.4 MG/DL (0.1-1.0); BLOOD UREA NITROGEN 19 MG/DL (7-18); BUN/CREATININE RATIO 20.4 (6.6-38.0); CALCIUM 9.3 MG/DL (8.5-10.1); CHLORIDE 107 MMOL/L (99-107); CREATININE 0.93 MG/DL (0.40-0.90); GLUCOSE 132 MG/DL (70-104); MAGNESIUM 1.7 MG/DL (1.5-2.4); POTASSIUM 4.1 MMOL/L (3.5-5.1); SODIUM 141 MMOL/L (135-145); TOTAL PROTEIN 5.8 G/DL (6.4-8.2); eGFR 59 ML/MIN
--- NOTE | 2018-10-03 06:14 | NUR ---
Student Medication Administration: For this medication-pass time frame, all medication were reviewed, dispensed, administered and documented per hospital policy by Tayla KELLY. Student documentation: I have reviewed and agree with all interventions, assessments performed and documented by Tayla KELLY.
--- NOTE | 2018-10-03 06:20 | NUR ---
Patient in room PCU 3012. I have received report from TYREE Kwon and had the opportunity to ask questions and assume patient care.
--- NOTE | 2018-10-03 06:23 | NUR ---
Problems reprioritized. Patient report given, questions answered & plan of care reviewed with Cinthya CLEMENTS.
[2018-10-03] MEDS: ondansetron/PF 4mg/2ml inj IV PRN (07:36)
[2018-10-03] MEDS: dicyclomine 10 MG capsule PO SCH ×4 (07:37→20:15)
[2018-10-03] MEDS: K and/or MAG REPLACEMENT MC SCH (07:37)
[2018-10-03] MEDS: atorvastatin 20mg tablet PO SCH (07:37)
[2018-10-03] MEDS: aspirin 81mg tablet.DR PO SCH (07:37)
[2018-10-03] MEDS: famotidine 20mg tablet PO SCH (07:38)
[2018-10-03] MEDS: magnesium oxide 400mg tablet PO SCH ×2 (07:38→20:14)
[2018-10-03] MEDS: lisinopril 10 MG tablet PO SCH (07:38)
[2018-10-03] MEDS: diltiazem CD 120mg capsule (once-daily) PO SCH (07:39)
[2018-10-03] MEDS ORDERED: aminophylline inj. 10 ML IV ONE (09:31)
[2018-10-03] MEDS ORDERED: regadenoson 0.4mg/5ml syringe IV ONE (09:31)
[2018-10-03] MEDS ORDERED: isosorbide mononitrate 30mg tab.SR.24H PO ONE (10:05)
--- NOTE | 2018-10-03 12:34 | NUR ---
Lexiscan administered at 1215.
[2018-10-03] MEDS: morphine 2 MG/ML inj. syringe IV PRN ×2 (13:10→21:57)
--- NOTE | 2018-10-03 14:53 | NUR ---
PAGER ID: [phone] MESSAGE: [id number] Jacob Major, okay to feed patient? TYREE Mendes [id number] Addendum: 10/03/18 at 1455 by Nanette Anton RN Received okay to feed patient
--- NOTE | 2018-10-03 18:53 | NUR ---
Consult f/u: Pt has no wt loss hx from prior admits though does admit to low appetite past week r/t not feeling well. No significant edema/wounds, weakness, or visible signs of muscle/fat wasting. Pt seen by GIRISH for written DM ed; verbal not given since pt headache s/p stress test and A1C 7.3 w/ no questions/concerns from pt. RD contact information provided. Addendum: 10/03/18 at [address] Amended: Links added.
--- NOTE | 2018-10-03 18:58 | NUR ---
Patient in room PCU 3012. I have received report from Cinthya CLEMENTS and had the opportunity to ask questions and assume patient care.
[2018-10-03] MEDS: amitriptyline 25mg tablet PO SCH (20:13)
[2018-10-03] MEDS: donepezil 5mg tablet PO SCH (20:15)
[2018-10-03] MEDS: HYDROcodone/acetaminophen 10/325mg tab PO PRN (20:18)
[2018-10-03] MEDS: insulin glargine (Lantus) pen - multi-dose SQ SCH (21:00)
[2018-10-04] VITALS (10 sets, daily range): BP systolic 128–164; BP diastolic 43–80
[2018-10-04 05:43] LABS: BASOPHILS % (AUTO) 0.4 % (0-1); EOSINOPHILS # (AUTO) 0.2 X10'3 (0-0.9); EOSINOPHILS % (AUTO) 3.3 % (0-6); HEMATOCRIT 36.1 % (35.0-45.0); HEMOGLOBIN 11.5 g/dl (12.0-16.0); LYMPHOCYTES # (AUTO) 1.4 X10'3 (1.1-4.8); LYMPHOCYTES % (AUTO) 25.5 % (21-51); MEAN CORPUSCULAR HEMOGLOBIN 28.6 PG (27.0-31.0); MEAN CORPUSCULAR VOLUME 89.4 FL (78-98); MEAN PLATELET VOLUME 7.9 FL (7.4-10.4); MONOCYTES # (AUTO) 0.5 X10'3 (0-0.9); NEUTROPHILS # (AUTO) 3.4 X10'3 (1.8-7.7); NEUTROPHILS % (AUTO) 61.8 % (42-75); PLATELET COUNT 226 X10'3 (140-440); RED BLOOD COUNT 4.03 X10'6 (4.20-5.60); RED CELL DISTRIBUTION WIDTH 14.5 % (11.5-14.5); WHITE BLOOD COUNT 5.5 X10'3 (4.5-11.0)
[2018-10-04 05:48] LABS: INR 1.5 INR; PROTHROMBIN TIME 14.7 SECONDS (9.0-12.0)
[2018-10-04 06:03] LABS: ALANINE AMINOTRANSFERASE 23 U/L (12-78); ALBUMIN 3.1 G/DL (3.4-5.0); ALBUMIN/GLOBULIN RATIO 1.1 (1.1-1.5); ALKALINE PHOSPHATASE 112 IU/L (46-116); ANION GAP 9 (8-16); ASPARTATE AMINO TRANSFERASE 17 U/L (10-37); BILIRUBIN,TOTAL 0.4 MG/DL (0.1-1.0); BLOOD UREA NITROGEN 23 MG/DL (7-18); BUN/CREATININE RATIO 24.5 (6.6-38.0); CHLORIDE 106 MMOL/L (99-107); CREATININE 0.94 MG/DL (0.40-0.90); GLUCOSE 136 MG/DL (70-104); MAGNESIUM 1.8 MG/DL (1.5-2.4); POTASSIUM 4.1 MMOL/L (3.5-5.1); SODIUM 143 MMOL/L (135-145); TOTAL CARBON DIOXIDE 27.6 MMOL/L (24-32); TOTAL PROTEIN 5.9 G/DL (6.4-8.2); eGFR 58 ML/MIN
--- NOTE | 2018-10-04 06:24 | NUR ---
Problems reprioritized. Patient report given, questions answered & plan of care reviewed with Roma CLEMENTS.
--- NOTE | 2018-10-04 06:25 | NUR ---
Patient in room PCU 3012. I have received report from TYREE Gomez and had the opportunity to ask questions and assume patient care.
[2018-10-04] MEDS: magnesium oxide 400mg tablet PO SCH ×2 (07:50→20:22)
[2018-10-04] MEDS: aspirin 81mg tablet.DR PO SCH (07:50)
[2018-10-04] MEDS: dicyclomine 10 MG capsule PO SCH ×3 (07:52→20:22)
[2018-10-04] MEDS: famotidine 20mg tablet PO SCH (07:53)
[2018-10-04] MEDS: atorvastatin 20mg tablet PO SCH (07:53)
[2018-10-04] MEDS: lisinopril 10 MG tablet PO SCH (07:53)
[2018-10-04] MEDS: diltiazem CD 120mg capsule (once-daily) PO SCH (07:54)
[2018-10-04] MEDS: K and/or MAG REPLACEMENT MC SCH (08:00)
[2018-10-04] MEDS: morphine 2 MG/ML inj. syringe IV PRN (09:19)
--- NOTE | 2018-10-04 13:07 | NUR ---
Dr. Taylor at bedside, orders received to make pt NPO after midnight in preparation for heart cath on 10/05/18.
[2018-10-04] MEDS: HYDROcodone/acetaminophen 10/325mg tab PO PRN ×2 (17:20→21:31)
--- NOTE | 2018-10-04 18:05 | NUR ---
Problems reprioritized. Patient report given, questions answered & plan of care reviewed with TYREE Nance.
[2018-10-04] MEDS: amitriptyline 25mg tablet PO SCH (20:22)
[2018-10-04] MEDS: donepezil 5mg tablet PO SCH (20:22)
[2018-10-04] MEDS: insulin glargine (Lantus) pen - multi-dose SQ SCH (20:25)
[2018-10-04] MEDS: LORazepam 1 MG tablet PO PRN (20:28)
[2018-10-05] VITALS (15 sets, daily range): BP systolic 100–142; BP diastolic 42–90
[2018-10-05 05:22] LABS: BASOPHILS % (AUTO) 0.7 % (0-1); EOSINOPHILS # (AUTO) 0.3 X10'3 (0-0.9); EOSINOPHILS % (AUTO) 4.8 % (0-6); HEMATOCRIT 35.6 % (35.0-45.0); HEMOGLOBIN 11.8 g/dl (12.0-16.0); LYMPHOCYTES # (AUTO) 2.1 X10'3 (1.1-4.8); LYMPHOCYTES % (AUTO) 37.7 % (21-51); MEAN CORPUSCULAR VOLUME 87.8 FL (78-98); MEAN PLATELET VOLUME 7.7 FL (7.4-10.4); MONOCYTES # (AUTO) 0.6 X10'3 (0-0.9); MONOCYTES % (AUTO) 10.1 % (2-12); NEUTROPHILS # (AUTO) 2.6 X10'3 (1.8-7.7); NEUTROPHILS % (AUTO) 46.7 % (42-75); PLATELET COUNT 245 X10'3 (140-440); RED BLOOD COUNT 4.06 X10'6 (4.20-5.60); WHITE BLOOD COUNT 5.6 X10'3 (4.5-11.0)
[2018-10-05 05:38] LABS: INR 1.3 INR; PROTHROMBIN TIME 12.6 SECONDS (9.0-12.0)
[2018-10-05 05:39] LABS: ALANINE AMINOTRANSFERASE 19 U/L (12-78); ALBUMIN 3.1 G/DL (3.4-5.0); ALBUMIN/GLOBULIN RATIO 1.1 (1.1-1.5); ALKALINE PHOSPHATASE 113 IU/L (46-116); ANION GAP 7 (8-16); ASPARTATE AMINO TRANSFERASE 16 U/L (10-37); BILIRUBIN,TOTAL 0.4 MG/DL (0.1-1.0); BLOOD UREA NITROGEN 21 MG/DL (7-18); BUN/CREATININE RATIO 22.1 (6.6-38.0); CALCIUM 9.4 MG/DL (8.5-10.1); CHLORIDE 106 MMOL/L (99-107); CREATININE 0.95 MG/DL (0.40-0.90); GLUCOSE 124 MG/DL (70-104); SODIUM 141 MMOL/L (135-145); TOTAL CARBON DIOXIDE 27.8 MMOL/L (24-32); eGFR 58 ML/MIN
--- NOTE | 2018-10-05 06:18 | NUR ---
Problems reprioritized. Patient report given, questions answered & plan of care reviewed with Roma CLEMENTS.
--- NOTE | 2018-10-05 06:30 | NUR ---
Patient in room PCU 3012. I have received report from TYREE Nance and had the opportunity to ask questions and assume patient care.
[2018-10-05] MEDS: dicyclomine 10 MG capsule PO SCH ×3 (07:58→21:03)
[2018-10-05] MEDS: famotidine 20mg tablet PO SCH (07:59)
[2018-10-05] MEDS: atorvastatin 20mg tablet PO SCH (07:59)
[2018-10-05] MEDS: aspirin 81mg tablet.DR PO SCH (07:59)
[2018-10-05] MEDS: magnesium oxide 400mg tablet PO SCH ×2 (07:59→21:03)
[2018-10-05] MEDS: K and/or MAG REPLACEMENT MC SCH (08:00)
[2018-10-05] MEDS: diltiazem CD 120mg capsule (once-daily) PO SCH (08:00)
[2018-10-05] MEDS: lisinopril 10 MG tablet PO SCH (08:01)
[2018-10-05] MEDS: ondansetron/PF 4mg/2ml inj IV PRN (09:52)
[2018-10-05] MEDS: morphine 2 MG/ML inj. syringe IV PRN ×2 (09:53→21:25)
--- NOTE | 2018-10-05 12:23 | NUR ---
Paged PICC nurse to attempt new PIV prior to heart cath.
[2018-10-05] MEDS: HYDROcodone/acetaminophen 10/325mg tab PO PRN ×2 (15:00→19:12)
[2018-10-05] MEDS ORDERED: iohexol 350MG/ML 100ml bottle IV ONE (16:31)
[2018-10-05] MEDS ORDERED: fentaNYL/PF 50MCG/1 ML 2ML syringe ONE (16:31)
[2018-10-05] MEDS ORDERED: LIDOcaine 1% (10mg/ml)w/preservative injection 20ml MDV ONE (16:31)
[2018-10-05] MEDS ORDERED: midazolam 2 mg/2 ml injection ONE (16:31)
--- NOTE | 2018-10-05 16:44 | NUR ---
Pt transported to veterinary laboratory diagnostician via wheelchair.
--- NOTE | 2018-10-05 17:30 | NUR ---
Pt returned to room from label rewinder via gurney. Pt transferred in to bed without difficulty. R groin access site assessed, no hematoma or signs of bleeding present. Pt educated on importance of remaining flat and motionless for 6 hours. Dorsalis pedis pulse in R foot present with doppler, dorsalis pedis pulse in L foot palpable. Post op vital signs initiated. Written orders reviewed and faxed to pharmacy. Will continue to closely monitor.
[2018-10-05] MEDS ORDERED: proCHLORperazine 10 MG/2 ml inj IV PRN (18:10)
[2018-10-05] MEDS ORDERED: OXAZEpam 15mg capsule PO PRN (18:10)
--- NOTE | 2018-10-05 18:27 | NUR ---
Patient in room PCU 3012C. I have received report from Roma CLEMENTS and had the opportunity to ask questions and assume patient care. Patient post laborer rags, site assessed, dressing CDI, no hematoma, or ecchymosis. Emphasized to patient, need to keep right leg straight, and to stay flat until 2330, to reduce risk of bleed at incision site. Will continue to monitor closely
--- NOTE | 2018-10-05 18:27 | NUR ---
Problems reprioritized. Patient report given, questions answered & plan of care reviewed with TYREE Nance.
--- NOTE | 2018-10-05 20:24 | NUR ---
Patient in room PCU 3012C. I have received report from TYREE KEARNEY and had the opportunity to ask questions and assume patient care.
[2018-10-05] MEDS: insulin glargine (Lantus) pen - multi-dose SQ SCH (21:00)
[2018-10-05] MEDS: donepezil 5mg tablet PO SCH (21:03)
[2018-10-05] MEDS: amitriptyline 25mg tablet PO SCH (21:03)
[2018-10-05] MEDS: LORazepam 1 MG tablet PO PRN (21:23)
[2018-10-06 01:20] VITALS: BP 139/53
[2018-10-06 03:00] VITALS: BP 139/53
[2018-10-06 05:07] LABS: BASOPHILS % (AUTO) 0.6 % (0-1); EOSINOPHILS # (AUTO) 0.3 X10'3 (0-0.9); EOSINOPHILS % (AUTO) 4.5 % (0-6); HEMATOCRIT 35.6 % (35.0-45.0); HEMOGLOBIN 11.7 g/dl (12.0-16.0); LYMPHOCYTES # (AUTO) 1.8 X10'3 (1.1-4.8); LYMPHOCYTES % (AUTO) 31.7 % (21-51); MEAN CORPUSCULAR HEMOGLOBIN 29.4 PG (27.0-31.0); MEAN CORPUSCULAR HGB CONC 32.9 g/dL (33.0-36.5); MEAN CORPUSCULAR VOLUME 89.5 FL (78-98); MEAN PLATELET VOLUME 7.8 FL (7.4-10.4); MONOCYTES # (AUTO) 0.5 X10'3 (0-0.9); MONOCYTES % (AUTO) 9.5 % (2-12); NEUTROPHILS % (AUTO) 53.7 % (42-75); PLATELET COUNT 239 X10'3 (140-440); RED BLOOD COUNT 3.98 X10'6 (4.20-5.60); WHITE BLOOD COUNT 5.6 X10'3 (4.5-11.0)
[2018-10-06 05:33] LABS: ALANINE AMINOTRANSFERASE 21 U/L (12-78); ALBUMIN 3.1 G/DL (3.4-5.0); ALBUMIN/GLOBULIN RATIO 1.1 (1.1-1.5); ALKALINE PHOSPHATASE 110 IU/L (46-116); ANION GAP 5 (8-16); ASPARTATE AMINO TRANSFERASE 16 U/L (10-37); BILIRUBIN,TOTAL 0.3 MG/DL (0.1-1.0); BLOOD UREA NITROGEN 24 MG/DL (7-18); BUN/CREATININE RATIO 23.3 (6.6-38.0); CHLORIDE 106 MMOL/L (99-107); CREATININE 1.03 MG/DL (0.40-0.90); GLUCOSE 129 MG/DL (70-104); MAGNESIUM 1.9 MG/DL (1.5-2.4); POTASSIUM 4.1 MMOL/L (3.5-5.1); SODIUM 141 MMOL/L (135-145); TOTAL PROTEIN 5.9 G/DL (6.4-8.2); eGFR 53 ML/MIN
--- NOTE | 2018-10-06 06:20 | NUR ---
Problems reprioritized. Patient report given, questions answered & plan of care reviewed with ART, RN.
--- NOTE | 2018-10-06 06:26 | NUR ---
[place] documentation: I have reviewed and agree with all interventions, assessments performed and documented by Tanner CLEMENTS. [place] Medication Administration: For this medication-pass time frame, all medication were reviewed, dispensed, administered and documented per hospital policy by Tanner CLEMENTS.
[2018-10-06] MEDS: dicyclomine 10 MG capsule PO SCH (08:22)
[2018-10-06] MEDS: aspirin 81mg tablet.DR PO SCH (08:22)
[2018-10-06] MEDS: magnesium oxide 400mg tablet PO SCH (08:23)
[2018-10-06] MEDS: atorvastatin 20mg tablet PO SCH (08:23)
[2018-10-06] MEDS: diltiazem CD 120mg capsule (once-daily) PO SCH (08:23)
[2018-10-06] MEDS: famotidine 20mg tablet PO SCH (08:24)
[2018-10-06] MEDS: lisinopril 10 MG tablet PO SCH (08:24)
[2018-10-06 09:09] LABS: INR 1.1 INR; PROTHROMBIN TIME 11.1 SECONDS (9.0-12.0)
[2018-10-06 10:12] VITALS: BP 137/49
--- NOTE | 2018-10-06 11:42 | NUR ---
Pt given DC instructions. Pt IV removed, tip intact. Pt given Diabetes skills information. pt escorted to lobby for cab ride home.
== END 2018-10-06 11:41 | disposition home or self-care (01) | DRG 287 ==
LOC: ER 16:44 → ED HOLD 23:17 → PCU 3S 10-02 00:09
PROVIDERS: ADMIT Family Medicine; ATTEND Internal Medicine
PROC: 4A02XM4 Measurement of Cardiac Total Activity, External Approach (ICD-10-PCS; principal; 2018-10-03)
PROC: 3E033HZ Introduction of Radioactive Substance into Peripheral Vein, Percutaneous Approach (ICD-10-PCS; 2018-10-03)
PROC: 4A023N7 Measurement of Cardiac Sampling and Pressure, Left Heart, Percutaneous Approach (ICD-10-PCS; 2018-10-05)
PROC: B2111ZZ Fluoroscopy of Multiple Coronary Arteries using Low Osmolar Contrast (ICD-10-PCS; 2018-10-05)
PROC: B2151ZZ Fluoroscopy of Left Heart using Low Osmolar Contrast (ICD-10-PCS; 2018-10-05)
DX: R07.89 Other chest pain (principal); Z68.41 Body mass index [BMI] 40.0-44.9, adult; D68.59 Other primary thrombophilia; I13.0 Hypertensive heart and chronic kidney disease with heart failure and stage 1 through stage 4 chronic kidney disease, or unspecified chronic kidney disease; E11.22 Type 2 diabetes mellitus with diabetic chronic kidney disease; E66.01 Morbid (severe) obesity due to excess calories; E78.00 Pure hypercholesterolemia, unspecified; E78.5 Hyperlipidemia, unspecified; F03.90 Unspecified dementia, unspecified severity, without behavioral disturbance, psychotic disturbance, mood disturbance, and anxiety; G20 Parkinson's disease; G89.4 Chronic pain syndrome; I50.9 Heart failure, unspecified; K21.9 Gastro-esophageal reflux disease without esophagitis; M19.90 Unspecified osteoarthritis, unspecified site; Z96.642 Presence of left artificial hip joint; Z96.653 Presence of artificial knee joint, bilateral; M79.7 Fibromyalgia; F32.9 Major depressive disorder, single episode, unspecified; G54.0 Brachial plexus disorders; N18.3 Chronic kidney disease, stage 3 (moderate); I25.10 Atherosclerotic heart disease of native coronary artery without angina pectoris; F41.9 Anxiety disorder, unspecified; Z98.1 Arthrodesis status; Z90.710 Acquired absence of both cervix and uterus; Z79.01 Long term (current) use of anticoagulants; Z79.4 Long term (current) use of insulin; Z88.2 Allergy status to sulfonamides; Z86.711 Personal history of pulmonary embolism; Z86.718 Personal history of other venous thrombosis and embolism; Z86.73 Personal history of transient ischemic attack (TIA), and cerebral infarction without residual deficits; Z87.891 Personal history of nicotine dependence; Z82.3 Family history of stroke; Z83.3 Family history of diabetes mellitus; Z80.42 Family history of malignant neoplasm of prostate; Z80.3 Family history of malignant neoplasm of breast
CPT/HCPCS: 36415; 71045; 78452; 80053; 80061; 82948; 83036; 83735; 83880; 84484; 85025; 85610; 85730; 87070; 93005; 93017; 93306; 93458; 96361; 96374; 97116; 97162; 99152; 99285; A4620; A6257; A9500; C1769; G0378; J0280; J1644; J1815; J2001; J2250; J2270; J2405; J3010; J7030; Q9967

== ENCOUNTER 2019-07-02 10:16 | Day surgery (SDC) | payer MEDICARE, OTHER ==
[2019-07-02] VITALS (11 sets, daily range): BP systolic 123–168; BP diastolic 55–91
[~2019-07-02] VITALS: Ht 157.5 cm; Wt 100.1 kg
[~2019-07-02 10:16] MED LIST changes: +ACET-2319 PO; +AMIT25TA9 PO; -DIPH1TAB PO; +FAMO20TA8 PO; +FURO-150 PO; -INSU100I29; +INSU100I29 SQ; -LISI-604 PO; +LISI10TA4 PO; +MAGN400C PO; +[UNRECOGNIZED DRUG - OTHER] PO
[2019-07-02] MEDS ORDERED: normal saline 1,000 ML IV SCH (10:40)
[2019-07-02] MEDS ORDERED: diphenhydrAMINE 25mg capsule PO PRN (10:40)
[2019-07-02 11:28] LABS: BASOPHILS % (AUTO) 0.4 % (0-1); EOSINOPHILS # (AUTO) 0.5 X10'3 (0-0.9); EOSINOPHILS % (AUTO) 8.8 % (0-6); HEMATOCRIT 38.4 % (35.0-45.0); HEMOGLOBIN 12.8 g/dl (12.0-16.0); LYMPHOCYTES # (AUTO) 1.7 X10'3 (1.1-4.8); LYMPHOCYTES % (AUTO) 26.6 % (21-51); MEAN CORPUSCULAR HEMOGLOBIN 29.6 PG (27.0-31.0); MEAN CORPUSCULAR HGB CONC 33.4 g/dL (33.0-36.5); MEAN CORPUSCULAR VOLUME 88.6 FL (78-98); MONOCYTES # (AUTO) 0.4 X10'3 (0-0.9); MONOCYTES % (AUTO) 7.2 % (2-12); NEUTROPHILS # (AUTO) 3.5 X10'3 (1.8-7.7); PLATELET COUNT 259 X10'3 (140-440); RED BLOOD COUNT 4.33 X10'6 (4.20-5.60); RED CELL DISTRIBUTION WIDTH 14.4 % (11.5-14.5); WHITE BLOOD COUNT 6.2 X10'3 (4.5-11.0)
[2019-07-02 11:44] LABS: ALBUMIN 3.9 G/DL (3.4-5.0); ANION GAP 12 (8-16); BLOOD UREA NITROGEN 15 MG/DL (7-18); BUN/CREATININE RATIO 14.9 (6.6-38.0); CALCIUM 9.2 MG/DL (8.5-10.1); CHLORIDE 105 MMOL/L (99-107); CREATININE 1.01 MG/DL (0.40-0.90); GLUCOSE 127 MG/DL (70-104); MAGNESIUM 1.6 MG/DL (1.5-2.4); POTASSIUM 4.1 MMOL/L (3.5-5.1); SODIUM 141 MMOL/L (135-145); TOTAL CARBON DIOXIDE 23.6 MMOL/L (24-32); eGFR 54 ML/MIN
[2019-07-02] MEDS ORDERED: HYDROcodone/acetaminophen 10/325mg tab PO PRN ×2 (12:30→15:40)
[2019-07-02] MEDS ORDERED: midazolam 2 mg/2 ml injection ONE ×2 (13:01→14:52)
[2019-07-02] MEDS ORDERED: iohexol 350MG/ML 100ml bottle IV ONE (13:01)
[2019-07-02] MEDS ORDERED: fentaNYL/PF 50MCG/1 ML 2ML syringe ONE (13:01)
[2019-07-02] MEDS ORDERED: LIDOcaine 1% (10mg/ml)w/preservative injection 20ml MDV ONE (13:01)
[2019-07-02] MEDS ORDERED: iohexol 350 MG/ML 50ML vial IV ONE (13:01)
[2019-07-02] MEDS ORDERED: INSU100V30 SQ (13:09)
[2019-07-02] MEDS ORDERED: CEPH500C2 PO (13:09)
[2019-07-02] MEDS ORDERED: CELE-193 PO (13:09)
[2019-07-02] MEDS ORDERED: DICL100G15 TOP (13:09)
[2019-07-02] MEDS ORDERED: EZET10TA21 PO (13:09)
[2019-07-02] MEDS ORDERED: INSU100V12 SQ (13:09)
[2019-07-02] MEDS ORDERED: BACL10TA PO (13:09)
[2019-07-02] MEDS ORDERED: ondansetron/PF 4mg/2ml inj IV PRN (15:40)
[2019-07-02] MEDS ORDERED: HYDROcodone/acetaminophen 5mg/325mg tablet PO PRN (15:40)
[2019-07-02] MEDS ORDERED: proCHLORperazine 10 MG/2 ml inj IV PRN (15:40)
[2019-07-02] MEDS ORDERED: normal saline 1000ml 1,000 ML IV SCH (15:40)
== END 2019-07-02 18:45 | disposition home or self-care (01) ==
LOC: SSTAY O 10:16
PROVIDERS: ATTEND Internal Medicine Cardiovascular Disease
DX: I25.10 Atherosclerotic heart disease of native coronary artery without angina pectoris (principal); R07.89 Other chest pain; I10 Essential (primary) hypertension; D68.9 Coagulation defect, unspecified; I25.2 Old myocardial infarction; G47.33 Obstructive sleep apnea (adult) (pediatric); E66.01 Morbid (severe) obesity due to excess calories; Z68.41 Body mass index [BMI] 40.0-44.9, adult; E11.9 Type 2 diabetes mellitus without complications
CPT/HCPCS: 36415; 80048; 82948; 83735; 85025; 85610; 93005; 93458; C1769; C1894; J1644; J2001; J2250; J3010; J7030; Q0163; Q9967; 99152; A4620; A6258; C1760

== ENCOUNTER 2019-08-09 10:29 | Emergency (ER) | payer MEDICARE, OTHER ==
[~2019-08-09] VITALS: Ht 157.5 cm; Wt 95.5 kg
[~2019-08-09 10:29] MED LIST changes: -ACET-2319 PO; +BACL10TA PO; +CELE-193 PO; +CEPH500C2 PO; +DICL100G15 TOP; +EZET10TA6 PO; +INSU100V12 SQ; +INSU100V30 SQ; -MAGN400C PO
[2019-08-09] MEDS ORDERED: aspirin 81mg tab.chew PO ONE (10:40)
[2019-08-09] MEDS ORDERED: nitroGLYCERIN 0.4mg SUBLingual tab SL PRN (10:55)
[2019-08-09 11:05] LABS: BASOPHILS # (AUTO) 0.1 X10'3 (0-0.2); BASOPHILS % (AUTO) 0.8 % (0-1); EOSINOPHILS # (AUTO) 0.3 X10'3 (0-0.9); EOSINOPHILS % (AUTO) 4.3 % (0-6); HEMATOCRIT 40.2 % (35.0-45.0); HEMOGLOBIN 13.3 g/dl (12.0-16.0); LYMPHOCYTES # (AUTO) 2.2 X10'3 (1.1-4.8); LYMPHOCYTES % (AUTO) 28.5 % (21-51); MEAN CORPUSCULAR HEMOGLOBIN 28.9 PG (27.0-31.0); MEAN CORPUSCULAR HGB CONC 33.1 g/dL (33.0-36.5); MEAN CORPUSCULAR VOLUME 87.3 FL (78-98); MEAN PLATELET VOLUME 7.7 FL (7.4-10.4); MONOCYTES # (AUTO) 0.8 X10'3 (0-0.9); MONOCYTES % (AUTO) 10.2 % (2-12); NEUTROPHILS # (AUTO) 4.3 X10'3 (1.8-7.7); NEUTROPHILS % (AUTO) 56.2 % (42-75); PLATELET COUNT 315 X10'3 (140-440); RED CELL DISTRIBUTION WIDTH 14.8 % (11.5-14.5); WHITE BLOOD COUNT 7.7 X10'3 (4.5-11.0)
[2019-08-09 11:16] LABS: ALANINE AMINOTRANSFERASE 32 U/L (12-78); ALBUMIN 3.8 G/DL (3.4-5.0); ALBUMIN/GLOBULIN RATIO 1.2 (1.1-1.5); ALKALINE PHOSPHATASE 135 IU/L (46-116); ANION GAP 13 (8-16); ASPARTATE AMINO TRANSFERASE 22 U/L (10-37); BILIRUBIN,TOTAL 0.3 MG/DL (0.1-1.0); BLOOD UREA NITROGEN 21 MG/DL (7-18); BUN/CREATININE RATIO 18.3 (6.6-38.0); CALCIUM 9.4 MG/DL (8.5-10.1); CHLORIDE 103 MMOL/L (99-107); CREATININE 1.15 MG/DL (0.40-0.90); GLUCOSE 143 MG/DL (70-104); SODIUM 139 MMOL/L (135-145); TOTAL CARBON DIOXIDE 22.6 MMOL/L (24-32); TOTAL PROTEIN 6.9 G/DL (6.4-8.2); eGFR 46 ML/MIN
[2019-08-09 11:22] LABS: MAGNESIUM 1.4 MG/DL (1.5-2.4)
--- NOTE | 2019-08-09 11:32 | NUR ---
PT REPORTS THAT SHE STILL HAS CHEST PAIN /, RADIATES TO LEFT ARM, SHOULDER AND JAW. PT FEELING NAUSEATED.
[2019-08-09] MEDS ORDERED: fentaNYL/PF 50MCG/1 ML 2ML syringe IV ONE (11:40)
[2019-08-09 12:04] LABS: D-DIMER 0.23 MG/L FEU (0-0.50)
[2019-08-09 12:46] VITALS: BP 159/99
== END 2019-08-09 12:49 | disposition home or self-care (01) ==
LOC: ER 10:30
DX: R07.89 Other chest pain (principal); E78.00 Pure hypercholesterolemia, unspecified; K21.9 Gastro-esophageal reflux disease without esophagitis; E11.9 Type 2 diabetes mellitus without complications; M19.90 Unspecified osteoarthritis, unspecified site; G89.29 Other chronic pain; I11.0 Hypertensive heart disease with heart failure; I50.9 Heart failure, unspecified; Z90.710 Acquired absence of both cervix and uterus; Z98.890 Other specified postprocedural states; Z86.711 Personal history of pulmonary embolism; Z86.718 Personal history of other venous thrombosis and embolism; Z79.01 Long term (current) use of anticoagulants; Z88.2 Allergy status to sulfonamides; Z88.8 Allergy status to other drugs, medicaments and biological substances; Z79.4 Long term (current) use of insulin; Z79.899 Other long term (current) drug therapy
CPT/HCPCS: 36415; 71045; 80053; 83735; 83880; 84484; 85025; 85379; 93005; 96374; 99285; J3010

== ENCOUNTER 2019-09-15 12:23 | Emergency (ER) | payer MEDICARE, OTHER ==
[~2019-09-15] VITALS: Ht 157.5 cm; Wt 90.0 kg
[2019-09-15] MEDS ORDERED: HYDROcodone/acetaminophen 5mg/325mg tablet PO ONE (13:05)
[2019-09-15] MEDS ORDERED: fentaNYL/PF 50MCG/1 ML 2ML syringe IV ONE (13:05)
[2019-09-15] MEDS ORDERED: benzonatate 100mg capsule PO ONE (13:05)
[2019-09-15 13:11] LABS: BASOPHILS # (AUTO) 0.1 X10'3 (0-0.2); BASOPHILS % (AUTO) 1.3 % (0-1); EOSINOPHILS # (AUTO) 0.1 X10'3 (0-0.9); EOSINOPHILS % (AUTO) 1.3 % (0-6); HEMATOCRIT 39.2 % (35.0-45.0); HEMOGLOBIN 12.7 g/dl (12.0-16.0); LYMPHOCYTES # (AUTO) 1.8 X10'3 (1.1-4.8); LYMPHOCYTES % (AUTO) 34.1 % (21-51); MEAN CORPUSCULAR HEMOGLOBIN 28.7 PG (27.0-31.0); MEAN CORPUSCULAR HGB CONC 32.4 g/dL (33.0-36.5); MEAN CORPUSCULAR VOLUME 88.8 FL (78-98); MEAN PLATELET VOLUME 7.5 FL (7.4-10.4); MONOCYTES # (AUTO) 0.4 X10'3 (0-0.9); MONOCYTES % (AUTO) 8.4 % (2-12); NEUTROPHILS # (AUTO) 2.9 X10'3 (1.8-7.7); NEUTROPHILS % (AUTO) 54.9 % (42-75); PLATELET COUNT 266 X10'3 (140-440); RED BLOOD COUNT 4.42 X10'6 (4.20-5.60); RED CELL DISTRIBUTION WIDTH 15.2 % (11.5-14.5); WHITE BLOOD COUNT 5.2 X10'3 (4.5-11.0)
[2019-09-15 13:27] LABS: D-DIMER 0.31 MG/L FEU (0-0.50); PARTIAL THROMBOPLASTIN TIME 36 SECONDS (22-32)
[2019-09-15 13:37] LABS: ALANINE AMINOTRANSFERASE 48 U/L (12-78); ALBUMIN 3.7 G/DL (3.4-5.0); ALKALINE PHOSPHATASE 108 IU/L (46-116); ANION GAP 11 (8-16); ASPARTATE AMINO TRANSFERASE 57 U/L (10-37); BILIRUBIN,TOTAL 0.3 MG/DL (0.1-1.0); BLOOD UREA NITROGEN 16 MG/DL (7-18); BUN/CREATININE RATIO 15.7 (6.6-38.0); CALCIUM 9.4 MG/DL (8.5-10.1); CHLORIDE 107 MMOL/L (99-107); CREATININE 1.02 MG/DL (0.40-0.90); GLUCOSE 170 MG/DL (70-104); POTASSIUM 3.4 MMOL/L (3.5-5.1); SODIUM 145 MMOL/L (135-145); TOTAL CARBON DIOXIDE 26.7 MMOL/L (24-32); TOTAL PROTEIN 7.3 G/DL (6.4-8.2); eGFR 53 ML/MIN
[2019-09-15] MEDS ORDERED: acetaminophen 325mg tablet PO ONE (14:15)
[2019-09-15] MEDS ORDERED: normal saline 1000ml 1,000 ML IV ONE (14:55)
[2019-09-15] MEDS ORDERED: ketorolac trometh. 30mg/ml inj. IV ONE (15:25)
[2019-09-15 16:19] VITALS: BP 137/89
[2019-09-15] MEDS ORDERED: morphine 4 MG/ML inj SYRINge IV ONE (17:05)
== END 2019-09-15 17:50 | disposition home or self-care (01) ==
LOC: ER 12:23
DX: R05 Cough (principal); R50.9 Fever, unspecified; R19.7 Diarrhea, unspecified; G89.29 Other chronic pain; G20 Parkinson's disease; I50.9 Heart failure, unspecified; E78.00 Pure hypercholesterolemia, unspecified; I11.0 Hypertensive heart disease with heart failure; K21.9 Gastro-esophageal reflux disease without esophagitis; E11.9 Type 2 diabetes mellitus without complications; M19.90 Unspecified osteoarthritis, unspecified site; Z86.69 Personal history of other diseases of the nervous system and sense organs; Z86.711 Personal history of pulmonary embolism; Z86.718 Personal history of other venous thrombosis and embolism; F32.9 Major depressive disorder, single episode, unspecified; Z90.710 Acquired absence of both cervix and uterus; Z60.2 Problems related to living alone; Z88.2 Allergy status to sulfonamides; Z88.8 Allergy status to other drugs, medicaments and biological substances; Z79.2 Long term (current) use of antibiotics; Z79.899 Other long term (current) drug therapy
CPT/HCPCS: 36415; 71045; 80053; 83605; 83880; 84145; 84484; 85025; 85379; 85610; 85730; 87040; 87502; 87503; 93005; 96361; 96374; 96375; 99285; J1885; J3010; J7030

== ENCOUNTER 2020-05-23 09:36 | Emergency (ER) | payer MEDICARE, OTHER ==
[~2020-05-23] VITALS: Ht 157.5 cm; Wt 91.5 kg
[2020-05-23 10:41] LABS: BASOPHILS # (AUTO) 0.1 X10'3 (0-0.2); BASOPHILS % (AUTO) 1.1 % (0-1); EOSINOPHILS # (AUTO) 0.3 X10'3 (0-0.9); EOSINOPHILS % (AUTO) 3.9 % (0-6); HEMATOCRIT 40.1 % (35.0-45.0); HEMOGLOBIN 13.6 g/dl (12.0-16.0); LYMPHOCYTES # (AUTO) 2.3 X10'3 (1.1-4.8); LYMPHOCYTES % (AUTO) 26.5 % (21-51); MEAN CORPUSCULAR HEMOGLOBIN 31.6 PG (27.0-31.0); MEAN CORPUSCULAR HGB CONC 33.9 g/dL (33.0-36.5); MEAN CORPUSCULAR VOLUME 93.4 FL (78-98); MEAN PLATELET VOLUME 8.1 FL (7.4-10.4); MONOCYTES # (AUTO) 0.5 X10'3 (0-0.9); MONOCYTES % (AUTO) 5.6 % (2-12); NEUTROPHILS # (AUTO) 5.4 X10'3 (1.8-7.7); NEUTROPHILS % (AUTO) 62.9 % (42-75); PLATELET COUNT 288 X10'3 (140-440); RED CELL DISTRIBUTION WIDTH 14.8 % (11.5-14.5); WHITE BLOOD COUNT 8.6 X10'3 (4.5-11.0)
[2020-05-23 10:46] LABS: ALANINE AMINOTRANSFERASE 23 U/L (12-78); ALBUMIN 3.8 G/DL (3.4-5.0); ALBUMIN/GLOBULIN RATIO 1.2 (1.1-1.5); ALKALINE PHOSPHATASE 97 IU/L (46-116); ANION GAP 15 (8-16); ASPARTATE AMINO TRANSFERASE 16 U/L (10-37); BILIRUBIN,TOTAL 0.3 MG/DL (0.1-1.0); BLOOD UREA NITROGEN 19 MG/DL (7-18); CHLORIDE 105 MMOL/L (99-107); CREATININE 1.12 MG/DL (0.40-0.90); GLUCOSE 171 MG/DL (70-104); POTASSIUM 3.7 MMOL/L (3.5-5.1); SODIUM 143 MMOL/L (135-145); TOTAL CARBON DIOXIDE 23.3 MMOL/L (24-32); eGFR 48 ML/MIN
[2020-05-23] MEDS ORDERED: nitroGLYCERIN 0.4mg SUBLingual tab SL PRN (11:25)
[2020-05-23] MEDS: nitroGLYCERIN 0.4mg SUBLingual tab SL PRN ×2 (11:57→12:36)
[2020-05-23] MEDS ORDERED: morphine 4 MG/ML inj SYRINge IV ONE (13:00)
[2020-05-23 14:19] VITALS: BP 153/75
== END 2020-05-23 14:26 | disposition home or self-care (01) ==
LOC: ER 09:36
DX: R07.89 Other chest pain (principal); G20 Parkinson's disease; I15.0 Renovascular hypertension; I11.0 Hypertensive heart disease with heart failure; E78.00 Pure hypercholesterolemia, unspecified; G47.30 Sleep apnea, unspecified; K21.9 Gastro-esophageal reflux disease without esophagitis; N19 Unspecified kidney failure; G89.29 Other chronic pain; M19.90 Unspecified osteoarthritis, unspecified site; E11.9 Type 2 diabetes mellitus without complications; Z90.710 Acquired absence of both cervix and uterus; Z86.718 Personal history of other venous thrombosis and embolism; Z88.2 Allergy status to sulfonamides; Z88.8 Allergy status to other drugs, medicaments and biological substances; Z79.2 Long term (current) use of antibiotics; Z79.4 Long term (current) use of insulin; Z79.899 Other long term (current) drug therapy; Z74.01 Bed confinement status
CPT/HCPCS: 36415; 71045; 80053; 83880; 84484; 85025; 85610; 93005; 96374; 99285; J2270

== ENCOUNTER 2020-05-24 16:08 | Outpatient (CLI) | payer MEDICARE, OTHER ==
[2020-05-24 17:02] LABS: D-DIMER 0.35 MG/L FEU (0-0.50)
[2020-05-25] MEDS ORDERED: AMOX-422 PO (16:27)
== END 2020-05-24 23:59 | disposition home or self-care (01) ==
LOC: LAB 16:08
PROVIDERS: ATTEND Family Medicine
DX: I10 Essential (primary) hypertension (principal); E11.9 Type 2 diabetes mellitus without complications; R60.0 Localized edema; R19.7 Diarrhea, unspecified; K57.92 Diverticulitis of intestine, part unspecified, without perforation or abscess without bleeding
CPT/HCPCS: 36415; 85379

== ENCOUNTER 2020-05-25 13:30 | Emergency (ER) | payer MEDICARE, OTHER ==
[~2020-05-25] VITALS: Ht 157.5 cm; Wt 86.4 kg
[2020-05-25] MEDS ORDERED: aspirin 81mg tab.chew PO ONE (15:10)
[2020-05-25 15:48] LABS: BASOPHILS # (AUTO) 0.1 X10'3 (0-0.2); EOSINOPHILS # (AUTO) 0.3 X10'3 (0-0.9); EOSINOPHILS % (AUTO) 2.9 % (0-6); HEMATOCRIT 39.5 % (35.0-45.0); HEMOGLOBIN 13.2 g/dl (12.0-16.0); LYMPHOCYTES # (AUTO) 2.5 X10'3 (1.1-4.8); LYMPHOCYTES % (AUTO) 26.2 % (21-51); MEAN CORPUSCULAR HEMOGLOBIN 31.1 PG (27.0-31.0); MEAN CORPUSCULAR HGB CONC 33.5 g/dL (33.0-36.5); MEAN CORPUSCULAR VOLUME 92.9 FL (78-98); MEAN PLATELET VOLUME 7.6 FL (7.4-10.4); MONOCYTES # (AUTO) 0.7 X10'3 (0-0.9); MONOCYTES % (AUTO) 7.2 % (2-12); NEUTROPHILS # (AUTO) 5.9 X10'3 (1.8-7.7); NEUTROPHILS % (AUTO) 62.7 % (42-75); PLATELET COUNT 264 X10'3 (140-440); RED BLOOD COUNT 4.25 X10'6 (4.20-5.60); RED CELL DISTRIBUTION WIDTH 14.6 % (11.5-14.5); WHITE BLOOD COUNT 9.3 X10'3 (4.5-11.0)
[2020-05-25 16:07] LABS: ALANINE AMINOTRANSFERASE 24 U/L (12-78); ALBUMIN/GLOBULIN RATIO 1.3 (1.1-1.5); ALKALINE PHOSPHATASE 99 IU/L (46-116); ANION GAP 13 (8-16); ASPARTATE AMINO TRANSFERASE 19 U/L (10-37); BILIRUBIN,TOTAL 0.2 MG/DL (0.1-1.0); BLOOD UREA NITROGEN 21 MG/DL (7-18); CALCIUM 9.5 MG/DL (8.5-10.1); CHLORIDE 107 MMOL/L (99-107); GLUCOSE 127 MG/DL (70-104); POTASSIUM 3.9 MMOL/L (3.5-5.1); SODIUM 147 MMOL/L (135-145); TOTAL CARBON DIOXIDE 27.4 MMOL/L (24-32); TOTAL PROTEIN 7.2 G/DL (6.4-8.2); eGFR 54 ML/MIN
[2020-05-25 16:13] LABS: MAGNESIUM 1.2 MG/DL (1.5-2.4)
[2020-05-25 16:24] VITALS: BP 156/90
[2020-05-25] MEDS ORDERED: AMOX-422 PO (16:27)
== END 2020-05-25 16:35 | disposition home or self-care (01) ==
LOC: ER 13:30
DX: R07.89 Other chest pain (principal); R06.02 Shortness of breath; R50.9 Fever, unspecified; Z20.828 Contact with and (suspected) exposure to other viral communicable diseases; I11.0 Hypertensive heart disease with heart failure; I50.9 Heart failure, unspecified; E78.00 Pure hypercholesterolemia, unspecified; K21.9 Gastro-esophageal reflux disease without esophagitis; E11.9 Type 2 diabetes mellitus without complications; M19.90 Unspecified osteoarthritis, unspecified site; G89.29 Other chronic pain; F32.9 Major depressive disorder, single episode, unspecified; Z86.69 Personal history of other diseases of the nervous system and sense organs; Z86.711 Personal history of pulmonary embolism; Z87.440 Personal history of urinary (tract) infections; Z86.718 Personal history of other venous thrombosis and embolism; Z90.710 Acquired absence of both cervix and uterus; Z98.890 Other specified postprocedural states; Z60.2 Problems related to living alone; Z88.2 Allergy status to sulfonamides; Z88.8 Allergy status to other drugs, medicaments and biological substances; Z79.2 Long term (current) use of antibiotics; Z79.4 Long term (current) use of insulin; Z79.899 Other long term (current) drug therapy
CPT/HCPCS: 36415; 71045; 80053; 83735; 83880; 84484; 85025; 87635; 93005; 99285; C9803

== ENCOUNTER 2020-09-04 13:57 | Emergency (ER) | payer MEDICARE, OTHER ==
[~2020-09-04] VITALS: Ht 157.5 cm; Wt 87.3 kg
[~2020-09-04 13:57] MED LIST changes: +LISI10TA27 PO; -LISI10TA4 PO
[2020-09-04 14:30] LABS: BASOPHILS # (AUTO) 0.1 X10'3 (0-0.2); BASOPHILS % (AUTO) 0.8 % (0-1); EOSINOPHILS # (AUTO) 0.2 X10'3 (0-0.9); EOSINOPHILS % (AUTO) 2.6 % (0-6); HEMATOCRIT 43.6 % (35.0-45.0); HEMOGLOBIN 14.3 g/dl (12.0-16.0); LYMPHOCYTES # (AUTO) 2.6 X10'3 (1.1-4.8); MEAN CORPUSCULAR HEMOGLOBIN 31.1 PG (27.0-31.0); MEAN CORPUSCULAR HGB CONC 32.7 g/dL (33.0-36.5); MEAN PLATELET VOLUME 7.4 FL (7.4-10.4); MONOCYTES # (AUTO) 0.6 X10'3 (0-0.9); MONOCYTES % (AUTO) 7.5 % (2-12); NEUTROPHILS # (AUTO) 4.9 X10'3 (1.8-7.7); NEUTROPHILS % (AUTO) 58.1 % (42-75); PLATELET COUNT 325 X10'3 (140-440); RED BLOOD COUNT 4.59 X10'6 (4.20-5.60); RED CELL DISTRIBUTION WIDTH 13.6 % (11.5-14.5); WHITE BLOOD COUNT 8.4 X10'3 (4.5-11.0)
[2020-09-04 14:48] LABS: ALANINE AMINOTRANSFERASE 28 U/L (12-78); ALBUMIN 3.7 G/DL (3.4-5.0); ALBUMIN/GLOBULIN RATIO 1.1 (1.1-1.5); ALKALINE PHOSPHATASE 87 IU/L (46-116); ANION GAP 11 (8-16); ASPARTATE AMINO TRANSFERASE 20 U/L (10-37); BILIRUBIN,TOTAL 0.4 MG/DL (0.1-1.0); BLOOD UREA NITROGEN 25 MG/DL (7-18); BUN/CREATININE RATIO 23.1 (6.6-38.0); CALCIUM 9.7 MG/DL (8.5-10.1); CHLORIDE 103 MMOL/L (99-107); CREATININE 1.08 MG/DL (0.40-0.90); GLUCOSE 135 MG/DL (70-104); POTASSIUM 4.2 MMOL/L (3.5-5.1); SODIUM 138 MMOL/L (135-145); TOTAL CARBON DIOXIDE 23.6 MMOL/L (24-32); TOTAL PROTEIN 7.2 G/DL (6.4-8.2); eGFR 50 ML/MIN
[2020-09-04 14:55] LABS: MAGNESIUM 1.5 MG/DL (1.5-2.4)
[2020-09-04] MEDS ORDERED: iohexol 350MG/ML 100ml bottle IV ONE (15:24)
[2020-09-04] MEDS ORDERED: levoFLOXACIN-Levaquin 500mg/D5 100 ML IV ONE (16:50)
[2020-09-04] MEDS ORDERED: MESSAGE TO NURSING PO SCH (17:00)
[2020-09-04] MEDS ORDERED: POTA10CA44 PO (17:47)
[2020-09-04] MEDS ORDERED: METF-900 PO (17:47)
[2020-09-04] MEDS ORDERED: LACT1CAP65 PO (17:51)
[2020-09-04] MEDS ORDERED: ASCO-134 PO (17:51)
[2020-09-04] MEDS ORDERED: OMEG-143 PO (17:51)
[2020-09-04] MEDS ORDERED: CHOL100025 PO (17:51)
[2020-09-04 17:57] VITALS: BP 149/41
[2020-09-04] MEDS ORDERED: LEVO500T89 PO (18:09)
[2020-09-04] MEDS ORDERED: HYDROcodone/acetaminophen 5mg/325mg tablet PO ONE (18:10)
== END 2020-09-04 18:22 | disposition home or self-care (01) ==
LOC: ER 13:57
DX: J18.9 Pneumonia, unspecified organism (principal); R07.89 Other chest pain; G20 Parkinson's disease; G43.909 Migraine, unspecified, not intractable, without status migrainosus; I50.9 Heart failure, unspecified; I11.0 Hypertensive heart disease with heart failure; E78.00 Pure hypercholesterolemia, unspecified; G47.30 Sleep apnea, unspecified; K21.9 Gastro-esophageal reflux disease without esophagitis; E11.9 Type 2 diabetes mellitus without complications; M19.90 Unspecified osteoarthritis, unspecified site; G89.29 Other chronic pain; Z86.711 Personal history of pulmonary embolism; Z90.710 Acquired absence of both cervix and uterus; Z86.73 Personal history of transient ischemic attack (TIA), and cerebral infarction without residual deficits; Z88.2 Allergy status to sulfonamides; Z88.8 Allergy status to other drugs, medicaments and biological substances; Z79.2 Long term (current) use of antibiotics; Z79.01 Long term (current) use of anticoagulants; Z79.899 Other long term (current) drug therapy; Z79.4 Long term (current) use of insulin
CPT/HCPCS: 36415; 71045; 71275; 80053; 83735; 83880; 84484; 85025; 85610; 93005; 96365; 99285; J1956; Q9967

== ENCOUNTER 2023-03-10 09:44 | Emergency (ER) | payer MEDICARE, OTHER ==
[~2023-03-10] VITALS: Ht 157.5 cm; Wt 97.6 kg
[~2023-03-10 09:44] MED LIST changes: +ASCO-134 PO; +BACL-11 PO; -BACL10TA PO; -CELE-193 PO; -CEPH500C2 PO; +CHOL100025 PO; -COU3T PO; -DICL100G15 TOP; -EZET10TA6 PO; -FAMO20TA8 PO; -INSU100I29 SQ; -INSU100V12 SQ; -INSU100V30 SQ; +LACT1CAP65 PO; -LISI10TA27 PO; -LORA2TAB PO; +METF-900 PO; +METO-411 PO; +NITR0.4T51 SL; +OMEG-143 PO; +POTA10CA85 PO; -[UNRECOGNIZED DRUG - OTHER] PO
[2023-03-10 10:16] LABS: BASOPHILS # (AUTO) 0.1 X10'3 (0-0.2); BASOPHILS % (AUTO) 0.8 % (0-1); EOSINOPHILS # (AUTO) 0.1 X10'3 (0-0.9); EOSINOPHILS % (AUTO) 1.9 % (0-6); HEMATOCRIT 41.8 % (35.0-45.0); HEMOGLOBIN 13.8 g/dl (12.0-16.0); LYMPHOCYTES % (AUTO) 28.5 % (21-51); MEAN CORPUSCULAR HEMOGLOBIN 30.9 PG (27.0-31.0); MEAN CORPUSCULAR VOLUME 93.8 FL (78-98); MEAN PLATELET VOLUME 7.9 FL (7.4-10.4); MONOCYTES # (AUTO) 0.5 X10'3 (0-0.9); MONOCYTES % (AUTO) 7.6 % (2-12); NEUTROPHILS # (AUTO) 4.3 X10'3 (1.8-7.7); NEUTROPHILS % (AUTO) 61.2 % (42-75); PLATELET COUNT 265 X10'3 (140-440); RED BLOOD COUNT 4.46 X10'6 (4.20-5.60); RED CELL DISTRIBUTION WIDTH 13.9 % (11.5-14.5)
[2023-03-10 10:36] LABS: ALANINE AMINOTRANSFERASE 23 U/L (12-78); ALBUMIN 3.7 G/DL (3.4-5.0); ALBUMIN/GLOBULIN RATIO 1.2 (1.1-1.5); ALKALINE PHOSPHATASE 59 IU/L (46-116); ANION GAP 7 (8-16); ASPARTATE AMINO TRANSFERASE 14 U/L (10-37); BILIRUBIN,TOTAL 0.3 MG/DL (0.1-1.0); BLOOD UREA NITROGEN 21 MG/DL (7-18); BUN/CREATININE RATIO 15.8 (10.0-20.0); CALCIUM 9.4 MG/DL (8.5-10.1); CHLORIDE 101 MMOL/L (99-107); CREATININE 1.33 MG/DL (0.40-0.90); GLUCOSE 188 MG/DL (70-104); POTASSIUM 4.7 MMOL/L (3.5-5.1); SODIUM 136 MMOL/L (135-145); TOTAL CARBON DIOXIDE 27.6 MMOL/L (24-32); TOTAL PROTEIN 6.8 G/DL (6.4-8.2); eCRCL 28 ML/MIN; eGFR 39 ML/MIN
[2023-03-10] MEDS ORDERED: CefTRIAXone 1000mg IM Kit (w/lidocaine diluent) IM ONE (12:50)
[2023-03-10 12:54] VITALS: BP 171/68; PULSE 81; RESP 18; TEMP 97; O2SAT 97
[2023-03-10] MEDS ORDERED: NITR100C6 PO (13:06)
== END 2023-03-10 13:16 | disposition home or self-care (01) ==
LOC: ER 09:45
DX: N39.0 Urinary tract infection, site not specified (principal); I11.0 Hypertensive heart disease with heart failure; E78.00 Pure hypercholesterolemia, unspecified; E11.9 Type 2 diabetes mellitus without complications; G89.29 Other chronic pain; M54.9 Dorsalgia, unspecified; F32.A Depression, unspecified; Z88.2 Allergy status to sulfonamides; Z79.899 Other long term (current) drug therapy; Z88.8 Allergy status to other drugs, medicaments and biological substances
CPT/HCPCS: 36415; 80053; 85025; 96372; 99283; J0696

== ENCOUNTER 2023-05-22 15:45 | Emergency (ER) | payer MEDICARE, OTHER ==
[~2023-05-22] VITALS: Ht 157.5 cm; Wt 109.0 kg
[~2023-05-22 15:45] MED LIST changes: +NITR100C6 PO
[2023-05-22 15:55] VITALS: BP 179/109; PULSE 98; RESP 16; TEMP 99.2; O2SAT 97
[2023-05-22 16:23] LABS: BILIRUBIN,URINE NEGATIVE (Neg); CLARITY,URINE TURBID (Clear); COLOR,URINE YELLOW (Yellow); GLUCOSE, URINE 250 mg/dl (Neg); KETONES,URINE TRACE mg/dl (Neg); LEUKOCYTE ESTERASE ,URINE SMALL (Neg); NITRITES, URINE NEGATIVE (Neg); OCCULT BLOOD,URINE TRACE-INTACT (Neg); PROTEIN,URINE 30 mg/dl (Neg); UROBILINOGEN,URINE 0.2 E.U/dL (0.2-1.0)
[2023-05-22 16:29] LABS: UA COLLECTION TYPE CLN CATCH MIDSTREAM
[2023-05-22 16:33] LABS: SQUAMOUS EPITHELIAL CELL,UR MANY /LPF (FEW)
[2023-05-22 16:43] LABS: BACTERIA,URINE 2+ /HPF (Neg); WBC,URINE TNTC /HPF (0-4)
[2023-05-22 16:44] LABS: WBC CLUMPS,URINE MODERATE /HPF (NEGATIVE)
[2023-05-22 17:22] LABS: BASOPHILS # (AUTO) 0.1 X10'3 (0-0.2); BASOPHILS % (AUTO) 1.3 % (0-1); EOSINOPHILS # (AUTO) 0.1 X10'3 (0-0.9); EOSINOPHILS % (AUTO) 1.8 % (0-6); HEMATOCRIT 38.1 % (35.0-45.0); HEMOGLOBIN 12.4 g/dl (12.0-16.0); LYMPHOCYTES # (AUTO) 2.3 X10'3 (1.1-4.8); LYMPHOCYTES % (AUTO) 34.1 % (21-51); MEAN CORPUSCULAR HEMOGLOBIN 30.6 PG (27.0-31.0); MEAN CORPUSCULAR HGB CONC 32.5 g/dL (33.0-36.5); MEAN CORPUSCULAR VOLUME 94.2 FL (78-98); MEAN PLATELET VOLUME 8.4 FL (7.4-10.4); MONOCYTES # (AUTO) 0.5 X10'3 (0-0.9); MONOCYTES % (AUTO) 7.6 % (2-12); NEUTROPHILS # (AUTO) 3.7 X10'3 (1.8-7.7); NEUTROPHILS % (AUTO) 55.2 % (42-75); PLATELET COUNT 272 X10'3 (140-440); RED BLOOD COUNT 4.05 X10'6 (4.20-5.60); RED CELL DISTRIBUTION WIDTH 14.6 % (11.5-14.5); WHITE BLOOD COUNT 6.7 X10'3 (4.5-11.0)
[2023-05-22 17:37] LABS: ALANINE AMINOTRANSFERASE 28 U/L (12-78); ALBUMIN/GLOBULIN RATIO 1.3 (1.1-1.5); ALKALINE PHOSPHATASE 83 IU/L (46-116); ANION GAP 10 (8-16); ASPARTATE AMINO TRANSFERASE 23 U/L (10-37); BILIRUBIN,TOTAL 0.2 MG/DL (0.1-1.0); BLOOD UREA NITROGEN 22 MG/DL (7-18); BUN/CREATININE RATIO 18.8 (10.0-20.0); CALCIUM 9.5 MG/DL (8.5-10.1); CHLORIDE 103 MMOL/L (99-107); CREATININE 1.17 MG/DL (0.40-0.90); GLUCOSE 196 MG/DL (70-104); LIPASE 30 U/L (16-77); POTASSIUM 3.5 MMOL/L (3.5-5.1); SODIUM 136 MMOL/L (135-145); TOTAL CARBON DIOXIDE 22.6 MMOL/L (24-32); eCRCL 32 ML/MIN; eGFR 45 ML/MIN
== END 2023-05-23 01:00 | disposition left against medical advice (07) ==
LOC: ER 15:46
DX: R10.9 Unspecified abdominal pain (principal); Z53.21 Procedure and treatment not carried out due to patient leaving prior to being seen by health care provider
CPT/HCPCS: 36415; 80053; 81001; 83690; 85025; 99281

== ENCOUNTER 2024-05-05 10:21 | Outpatient (CLI) | payer MEDICARE, OTHER ==
[~2024-05-05 10:21] MED LIST changes: -POTA10CA85 PO; +POTA10CA95 PO
== END 2024-05-05 23:59 | disposition home or self-care (01) ==
LOC: CARD DIAG 10:21
PROVIDERS: ATTEND Student in an Organized Health Care Education/Training Program
DX: I37.1 Nonrheumatic pulmonary valve insufficiency (principal); R00.2 Palpitations
CPT/HCPCS: 93306